=== PATIENT | female | born 1995 | race African-American/Black ===

== ENCOUNTER 2017-01-01 09:44 | Emergency (ER) | payer SELFPAY ==
[~2017-01-01] VITALS: Ht 175.3 cm; Wt 120.2 kg
[~2017-01-01 09:44] MED LIST: MUPI15CR TP
--- NOTE | 2017-01-01 10:13 | PHYS DOC ---
Past Medical History Past Medical History: No Pertinent History Past Surgical History: No Surgical History Alcohol Use: None Drug Use: None Adult General Chief Complaint Chief Complaint: SORE THROAT HPI HPI Patient is a 21 year old female otherwise healthy with a two-year history of intermittent lymphadenopathy specifically underneath the jaw and left side of the neck. She says it periodically once a month gets enlarged and very tender to palpation. This one episode his began 2 days ago as got progressively worse with x-ray swelling localized tenderness to the left anterior cervical chain. She says these swelling lymph nodes to never completely go away they just become increasingly larger over the last 6 months. Patient denies any fevers, night sweats, weight loss or sore breath. She denies any chest pain, recent URI symptoms, or actual sore throat. Said the pain does hurt to swallow. She denies any change in voice, denies any sick contacts denies any travel or recent antibiotic use. Reactive lymphadenopathy could be associated with irises or bacterial infections. Given the duration of symptoms and no localized redness with hard lymph nodes oral throat cancers also need to be considered. Review of Systems Review of Systems Constitutional: Denies fever or chills [] Eyes: Denies change in visual acuity, redness, or eye pain [] HENT: Denies nasal congestion does complain of a sore throat with swallowing. She denies any anterior neck pain but there is swelling with this reactive lymphadenopathy. There is been no hot potato voice Respiratory: Denies cough or shortness of breath [] Cardiovascular: No additional information not addressed in HPI [] GI: Denies abdominal pain, nausea, vomiting, bloody stools or diarrhea [] : Denies dysuria or hematuria [] Musculoskeletal: Denies back pain or joint pain [] Integument: Denies rash or skin lesions [] Neurologic: Denies headache, focal weakness or sensory changes [] Endocrine: Denies polyuria or polydipsia [] Current Medications Current Medications Current Medications Medications (Trade) Dose Ordered Sig/Seven Start Time Stop Time Status Last Admin Dose Admin Info (Do NOT chart on this entry -- for MONITORING) 1 each PRN DAILY PRN 01/01/17 10:30 01/03/17 10:29 Iohexol (Omnipaque 300 Mg/ml) 70 ml 1X ONCE 01/01/17 10:30 01/01/17 10:31 DC 01/01/17 11:17 70 ML Allergies Allergies Allergies Coded Allergies Type Severity Reaction Last Updated Verified No Known Drug Allergies 05/27/16 No Physical Exam Physical Exam Signs within normal limits. Constitutional: Well developed, well nourished, no acute distress, non-toxic appearance. He is relatively obese HENT: Normocephalic, atraumatic, bilateral external ears normal, oropharynx moist, no oral exudates, nose normal. There is no erythema is demonstrates tender lymphadenopathy specifically along the chains underneath the chin and anterior cervical chain. They're fixed very firm measuring 1-2 cm in size with. There is no evidence of Low angina or bacterial tracheitis. Eyes: PERRLA, EOMI, conjunctiva normal, no discharge. [] Neck: Normal range of motion, no tenderness, supple, no stridor. [] Cardiovascular:Heart rate regular rhythm, no murmur [] Lungs & Thorax: Bilateral breath sounds clear to auscultation [] Skin: Warm, dry, no erythema, no rash. [] Neurologic: Alert and oriented X 3, normal motor function, normal sensory function, no focal deficits noted. [] Psychologic: Affect normal, judgement normal, mood normal. [] Current Patient Data Vital Signs Vital Signs Date Time Temp Pulse Resp B/P (MAP) Pulse Ox O2 Delivery O2 Flow Rate FiO2 01/01/17 09:45 99.2 78 16 140/85 (103) 98 Room Air 99.2 Lab Values Laboratory Tests Test 01/01/17 09:33 01/01/17 10:30 POC Urine HCG, Qualitative Hcg negative (Negative) White Blood Count 11.1 x10^3/uL (4.0-11.0) H Red Blood Count 5.13 x10^6/uL (3.50-5.40) Hemoglobin 12.7 g/dL (12.0-15.5) Hematocrit 39.8 % (36.0-47.0) Mean Corpuscular Volume 78 fL (79-100) L Mean Corpuscular Hemoglobin 25 pg (25-35) Mean Corpuscular Hemoglobin Concent 32 g/dL (31-37) Red Cell Distribution Width 14.7 % (11.5-14.5) H Platelet Count 239 x10^3/uL (140-400) Neutrophils (%) (Auto) 78 % (31-73) H Lymphocytes (%) (Auto) 13 % (24-48) L Monocytes (%) (Auto) 7 % (0-9) Eosinophils (%) (Auto) 2 % (0-3) Basophils (%) (Auto) 1 % (0-3) Neutrophils # (Auto) 8.6 x10^3uL (1.8-7.7) H Lymphocytes # (Auto) 1.4 x10^3/uL (1.0-4.8) Monocytes # (Auto) 0.8 x10^3/uL (0.0-1.1) Eosinophils # (Auto) 0.2 x10^3/uL (0.0-0.7) Basophils # (Auto) 0.1 x10^3/uL (0.0-0.2) Sodium Level 140 mmol/L (136-145) Potassium Level 3.6 mmol/L (3.5-5.1) Chloride Level 104 mmol/L (98-107) Carbon Dioxide Level 28 mmol/L (21-32) Anion Gap 8 (6-14) Blood Urea Nitrogen 7 mg/dL (7-20) Creatinine 0.7 mg/dL (0.6-1.0) Estimated GFR (Cockcroft-Gault) 129.1 BUN/Creatinine Ratio 10 (6-20) Glucose Level 105 mg/dL (70-99) H Calcium Level 8.3 mg/dL (8.5-10.1) L Total Bilirubin 0.6 mg/dL (0.2-1.0) Aspartate Amino Transferase (AST) 20 U/L (15-37) Alanine Aminotransferase (ALT) 24 U/L (14-59) Alkaline Phosphatase 97 U/L (46-116) Total Protein 7.7 g/dL (6.4-8.2) Albumin 3.8 g/dL (3.4-5.0) Albumin/Globulin Ratio 1.0 (1.0-1.7) Laboratory Tests 01/01/17 10:30 Laboratory Tests 01/01/17 10:30 EKG EKG [] Radiology/Procedures Radiology/Procedures [] [facility] [address] [place] [address] IMAGING REPORT Signed PATIENT: CRYSTAL NOVOA ACCOUNT: [id number] : 1995 LOCATION: ER AGE: 21 SEX: F EXAM STATUS: REG ER ORD. PHYSICIAN: MONA MUIR MD REASON: long-term lymphadenopathy PROCEDURE: CT SOFT TISSUE NECK W/CONTRAST CT of the neck with contrast, 01/01/2017: History: Lymphadenopathy Multidetector CT imaging was performed following an IV bolus injection of iodinated contrast material. Multiplanar reconstructions were produced. There is a mildly enlarged submandibular lymph node centered just to the right of midline. It measures 11 mm in short axis dimension. There is an adjacent 10 mm submandibular lymph node just to the left of midline. There is a cluster of small lymph nodes along the posterior/inferior aspect of the left mandibular angle with the largest of these measuring 10-11 mm in short axis dimension. There are other smaller upper cervical lymph nodes bilaterally which appear to be at the upper limits of normal in size. These are somewhat elongated measuring approximately 9 mm in short axis dimension. The laryngeal region is unremarkable. No significant airway narrowing is seen. The thyroid, parotid and submandibular glands show no abnormality. The visualized paranasal and mastoid sinuses are clear. A radiopaque foreign body in the mouth is presumably related to a tongue piercing. IMPRESSION: Minimal upper cervical adenopathy as described above. PQRS Compliance Statement: One or more of the following individualized dose reduction techniques were utilized for this examination: 1. Automated exposure control 2. Adjustment of the mA and/or kV according to patient size 3. Use of iterative reconstruction technique Course & Med Decision Making Course & Med Decision Making Pertinent Labs and Imaging studies reviewed. (See chart for details) with a long -standing is history of intermittent lymphadenopathy of the lower jaw along the anterior cervical chains. no evidence of cancer in the oral airway. no evidence of ingest, periapical abscess, doubt cure tracheitis or Low angina. Is now having symptoms for last 2 years into follow up with ENT for possible source continued inflammation causing reactive lymphadenopathy. Discharge home with ENT follow-up. Provided NSAIDs for similar treatment. Impression reactive lymphadenopathy unclear etiology likely seasonal allergies in nature. [] Dragon Disclaimer Dragon Disclaimer This electronic medical record was generated, in whole or in part, using a voice recognition dictation system. Departure Departure Impression: Primary Impression: Lymphadenopathy of head and neck Disposition: HOME, SELF-CARE Condition: IMPROVED Referrals: NO PCP (PCP) Patient Instructions: Sore Throat Additional Instructions: please return for any new or increased symptoms, questions or concerns Scripts Naproxen (NAPROSYN) 500 Mg Tablet 1 TAB PO BID, #14 TAB 1 Refill Prov: MONA MUIR MD 01/01/17 MONA MUIR MD Jan 01, 2017 10:13
[2017-01-01] MEDS ORDERED: CONTRAST GIVEN MC PRN (10:30)
[2017-01-01] MEDS ORDERED: IOHEXOL 300 MG/ML 75 ML VIAL IV ONE (10:30)
[2017-01-01 10:47] LABS: BASO # 0.1 x10^3/uL (0.0-0.2); BASO % 1 % (0-3); EOS % 2 % (0-3); HEMATOCRIT 39.8 % (36.0-47.0); HEMOGLOBIN 12.7 g/dL (12.0-15.5); LYMPH # 1.4 x10^3/uL (1.0-4.8); LYMPH % 13 % (24-48); MEAN CORPUSCULAR HEMOGLOBIN 25 pg (25-35); MEAN CORPUSCULAR HGB CONC 32 g/dL (31-37); MEAN CORPUSCULAR VOLUME 78 fL (79-100); MONO % 7 % (0-9); NEUT % 78 % (31-73); PLATELET COUNT 239 x10^3/uL (140-400); RED BLOOD COUNT 5.13 x10^6/uL (3.50-5.40); RED CELL DISTRIBUTION WIDTH 14.7 % (11.5-14.5); WHITE BLOOD COUNT 11.1 x10^3/uL (4.0-11.0)
[2017-01-01 11:00] LABS: CALCIUM 8.3 mg/dL (8.5-10.1); CREATININE 0.7 mg/dL (0.6-1.0); GFR 129.1; POTASSIUM 3.6 mmol/L (3.5-5.1)
[2017-01-01 11:05] LABS: ALBUMIN 3.8 g/dL (3.4-5.0); TOTAL BILIRUBIN 0.6 mg/dL (0.2-1.0); TOTAL PROTEIN 7.7 g/dL (6.4-8.2)
--- NOTE | 2017-01-01 11:46 | RAD ---
CT of the neck with contrast, 01/01/2017: History: Lymphadenopathy Multidetector CT imaging was performed following an IV bolus injection of iodinated contrast material. Multiplanar reconstructions were produced. There is a mildly enlarged submandibular lymph node centered just to the right of midline. It measures 11 mm in short axis dimension. There is an adjacent 10 mm submandibular lymph node just to the left of midline. There is a cluster of small lymph nodes along the posterior/inferior aspect of the left mandibular angle with the largest of these measuring 10-11 mm in short axis dimension. There are other smaller upper cervical lymph nodes bilaterally which appear to be at the upper limits of normal in size. These are somewhat elongated measuring approximately 9 mm in short axis dimension. The laryngeal region is unremarkable. No significant airway narrowing is seen. The thyroid, parotid and submandibular glands show no abnormality. The visualized paranasal and mastoid sinuses are clear. A radiopaque foreign body in the mouth is presumably related to a tongue piercing. IMPRESSION: Minimal upper cervical adenopathy as described above. PQRS Compliance Statement: One or more of the following individualized dose reduction techniques were utilized for this examination: 1. Automated exposure control 2. Adjustment of the mA and/or kV according to patient size 3. Use of iterative reconstruction technique
[2017-01-01 12:00] VITALS: BP 125/79
[2017-01-01] MEDS ORDERED: NAPR500T PO (12:01)
== END 2017-01-01 12:10 | disposition home or self-care (01) ==
LOC: ER 09:44
DX: R59.0 Localized enlarged lymph nodes (principal); E66.9 Obesity, unspecified
CPT/HCPCS: 36415; 70491; 80053; 81025; 85027; 99285; Q9967

== ENCOUNTER 2018-03-05 11:48 | Emergency (ER) | payer OTHER ==
[~2018-03-05] VITALS: Ht 175.3 cm; Wt 120.2 kg
[~2018-03-05 11:48] MED LIST changes: +NAPR-683 PO
[2018-03-05 11:56] VITALS: BP 131/68
[2018-03-05] MEDS ORDERED: CEPH-264 PO (12:14)
[2018-03-05] MEDS ORDERED: CEPHALEXIN 250 MG CAPSULE. PO ONE (12:15)
--- NOTE | 2018-03-05 12:28 | PHYS DOC ---
Past Medical History Past Medical History: No Pertinent History Past Surgical History: No Surgical History Alcohol Use: None Drug Use: None Adult General Chief Complaint Chief Complaint: BREAST PROBLEM HPI HPI Patient is a 22 year old female who presents with pain in the left breast. Patient is 2 weeks . She is successfully breast-feeding. She denies difficulties with latch. She does not have decreased milk production. She does however complain of redness and pain over the left breast that started overnight last evening. She has had no fever but has had some chills. She has had some nausea as well but she has been having this since delivery and it is not a new symptom. She has medications at home for nausea. Patient denies prior history of similar symptoms. Otherwise, no difficulties in the period. No abdominal pain. She describes what sounds to be normal lochia. Review of Systems Review of Systems Constitutional: Denies fever or chills Respiratory: Denies cough or shortness of breath Cardiovascular: No additional information GI: Denies abdominal pain : Denies dysuria Musculoskeletal: Denies back pain Integument: Denies rash or skin lesions Neurologic: Denies headache All other systems were reviewed and found to be within normal limits, except as documented in this note. Current Medications Current Medications Current Medications Medications (Trade) Dose Ordered Sig/Seven Start Time Stop Time Status Last Admin Dose Admin Cephalexin HCl (Keflex) 500 mg 1X ONCE 03/05/18 12:15 03/05/18 12:16 DC Allergies Allergies Allergies Coded Allergies Type Severity Reaction Last Updated Verified No Known Drug Allergies 05/27/16 No Physical Exam Physical Exam Constitutional: Well developed, well nourished, no acute distress HENT: Normocephalic, atraumatic, bilateral external ears normal Eyes: PERRLA, EOMI, conjunctiva normal Neck: Normal range of motion Cardiovascular:Heart rate regular rhythm Lungs & Thorax: Bilateral lungs clear Abdomen: Bowel sounds normal, soft, no tenderness Skin: Warm Extremities: No edema Neurologic: Alert and oriented X 3 Psychologic: Affect normal Exam of the left breast reveals local warmth to touch, and tenderness to manipulation. milk is oozing from the nipple but does not appear purulent. no palpable fluctuance is present. Current Patient Data Vital Signs Vital Signs Date Time Temp Pulse Resp B/P (MAP) Pulse Ox O2 Delivery O2 Flow Rate FiO2 03/05/18 11:56 99.9 102 18 131/68 (89) 97 Room Air 99.9 EKG EKG [] Radiology/Procedures Radiology/Procedures [] Course & Med Decision Making Course & Med Decision Making Pertinent Labs and Imaging studies reviewed. (See chart for details) Patient is evaluated in the emergency department for mastitis in the period. She has no constitutional symptoms and no signs of systemic infectious process. Patient is given a dose of Keflex in the emergency room. She is discharged home on the same. She is advised to come back to the ER for any new or worsening symptoms. Otherwise, follow up with her OB at her already scheduled appointment. Patient is agreeable to the plan of care and all of her questions are answered prior to discharge home. Dragon Disclaimer Dragon Disclaimer This electronic medical record was generated, in whole or in part, using a voice recognition dictation system. Departure Departure Impression: Primary Impression: Mastitis Disposition: 01 HOME, SELF-CARE Condition: GOOD Patient Instructions: Mastitis, [id number] Scripts Cephalexin (KEFLEX) 500 Mg Capsule 500 MG PO QID for 10 Days, #40 CAP Prov: XIN OLVERA DO 03/05/18 XIN OLVERA DO Mar 05, 2018 12:28
== END 2018-03-05 12:25 | disposition home or self-care (01) ==
LOC: ER 11:48
DX: O91.22 Nonpurulent mastitis associated with the puerperium (principal); R11.0 Nausea
CPT/HCPCS: 99283

== ENCOUNTER 2018-07-13 08:31 | Emergency (ER) | payer OTHER ==
[~2018-07-13] VITALS: Ht 175.3 cm; Wt 127.0 kg
[~2018-07-13 08:31] MED LIST changes: +CEPH-264 PO
[2018-07-13 09:30] LABS: BILIRUBIN,URINE NEGATIVE (NEG); CLARITY,URINE CLOUDY; COLOR,URINE YELLOW; NITRITE,URINE NEGATIVE (NEG); PROTEIN,URINE NEGATIVE (NEG-TRACE); UROBILINOGEN,URINE 0.2 mg/dL (0.2 mg/dL)
--- NOTE | 2018-07-13 09:38 | PHYS DOC ---
Past Medical History Past Medical History: Other Additional Past Medical Histor: BV Past Surgical History: No Surgical History Alcohol Use: None Drug Use: None Adult General Chief Complaint Chief Complaint: VAGINAL PROBLEM HPI HPI Patient is a 22 year old female who presents with vaginal discharge for 2 days. Patient denies any concerns for STDs. Denies any chance she is . Patient states she has history of BV and her current discharge feels and smells like BV infection. Review of Systems Review of Systems Constitutional: Denies fever or chills [] Eyes: Denies change in visual acuity, redness, or eye pain [] HENT: Denies nasal congestion or sore throat [] Respiratory: Denies cough or shortness of breath [] Cardiovascular: No additional information not addressed in HPI [] GI: Reports vaginal discharge for 2 days. Denies abdominal pain, nausea, vomiting, bloody stools or diarrhea [] : Denies dysuria or hematuria [] Musculoskeletal: Denies back pain or joint pain [] Integument: Denies rash or skin lesions [] Neurologic: Denies headache, focal weakness or sensory changes [] [] All other systems were reviewed and found to be within normal limits, except as documented in this note. Allergies Allergies Allergies Coded Allergies Type Severity Reaction Last Updated Verified No Known Drug Allergies 05/27/16 No Physical Exam Physical Exam Constitutional: Well developed, well nourished, no acute distress, non-toxic appearance. [] HENT: Normocephalic, atraumatic, bilateral external ears normal, oropharynx moist, no oral exudates, nose normal. [] Eyes: PERRLA, EOMI, conjunctiva normal, no discharge. [] Neck: Normal range of motion, no tenderness, supple, no stridor. [] Cardiovascular:Heart rate regular rhythm, no murmur [] Lungs & Thorax: Bilateral breath sounds clear to auscultation [] Abdomen: Bowel sounds normal, soft, no tenderness, no masses, no pulsatile masses. [] Pelvic exam External pelvic appears normal, cervix is visualized closed no CMT, no adnexal tenderness, trace amount of white discharge in the vaginal vault fishy in smell. Skin: Warm, dry, no erythema, no rash. [] Back: No tenderness, no CVA tenderness. [] Extremities: No tenderness, no cyanosis, no clubbing, ROM intact, no edema. [] Neurologic: Alert and oriented X 3, normal motor function, normal sensory function, no focal deficits noted. [] Psychologic: Affect normal, judgement normal, mood normal. [] Current Patient Data Vital Signs Vital Signs Date Time Temp Pulse Resp B/P (MAP) Pulse Ox O2 Delivery O2 Flow Rate FiO2 07/13/18 09:10 98.9 92 16 167/86 (113) 100 Room Air 98.9 Lab Values Laboratory Tests Test 07/13/18 09:15 07/13/18 09:20 POC Urine HCG, Qualitative Hcg negative (Negative) Urine Collection Type Unknown Urine Color Yellow Urine Clarity Cloudy Urine pH 6.0 Urine Specific [place] 1.025 Urine Protein Negative mg/dL (NEG-TRACE) Urine Glucose (UA) Negative mg/dL (NEG) Urine Ketones (Stick) Negative mg/dL (NEG) Urine Blood Trace (NEG) Urine Nitrite Negative (NEG) Urine Bilirubin Negative (NEG) Urine Urobilinogen Dipstick 0.2 mg/dL (0.2 mg/dL) Urine Leukocyte Esterase Large (NEG) Urine RBC 0 /HPF (0-2) Urine WBC 20-40 /HPF (0-4) Urine Squamous Epithelial Cells Mod /LPF Urine Bacteria Moderate /HPF (0-FEW) Urine Mucus Slight /LPF Microbiology 07/13/18 Wet Prep - Final, Complete EKG EKG [] Radiology/Procedures Radiology/Procedures [] Course & Med Decision Making Course & Med Decision Making Pertinent Labs and Imaging studies reviewed. (See chart for details) This is a 22-year-old female patient presented to the ED today complaining of vaginal discharge that began yesterday. Patient is concerned for bacterial vaginosis, has history of the same. Negative urine hCG, urine positive for UTI. Wet prep noted for altered yuni consistent with bacterial vaginosis. Discharged with Flagyl and cephalexin. Follow-up with PCP in 1-2 weeks. Dragon Disclaimer Dragon Disclaimer This electronic medical record was generated, in whole or in part, using a voice recognition dictation system. Departure Departure Impression: Primary Impression: UTI (urinary tract infection) Additional Impression: Bacterial vaginosis Disposition: HOME, SELF-CARE Condition: STABLE Referrals: UNKNOWN PCP NAME (PCP) Follow up with your doctor in 1-2 weeks Patient Instructions: Bacterial Vaginosis, [id number]-[id number], Urinary Tract Infection Additional Instructions: You were treated in the emergency room for urinary tract infection and bacterial vaginosis. Complete your antibiotics. Follow-up with your own primary care doctor in 1-2 weeks. To the ED at any point symptoms worsen. Scripts Cephalexin (CEPHALEXIN) 500 Mg Tablet 1 TAB PO BID, #14 TAB Prov: MARTIN TINOCO APRN 07/13/18 Metronidazole (FLAGYL) 500 Mg Tablet 1 TAB PO BID, #14 TAB Prov: MARTIN TINOCO APRN 07/13/18 Problem Qualifiers Primary Impression: UTI (urinary tract infection) Urinary tract infection type: site unspecified Hematuria presence: without hematuria Qualified Codes: N39.0 - Urinary tract infection, site not specified MARTIN TINOCO APRN Jul 13, 2018 09:38
[2018-07-13 09:48] LABS: SQUAMOUS EPITHELIAL CELL,UR MOD /LPF
[2018-07-13 09:49] LABS: BACTERIA,URINE MODERATE /HPF (0-FEW); RBC,URINE 0 /HPF (0-2); WBC,URINE 20-40 /HPF (0-4)
[2018-07-13] MEDS ORDERED: CEPH500T PO (10:11)
[2018-07-13] MEDS ORDERED: METR500T PO (10:11)
[2018-07-13 10:26] VITALS: BP 156/86
== END 2018-07-13 10:26 | disposition home or self-care (01) ==
LOC: ER 08:31
DX: N39.0 Urinary tract infection, site not specified (principal); N76.0 Acute vaginitis; B96.89 Other specified bacterial agents as the cause of diseases classified elsewhere
CPT/HCPCS: 81001; 81025; 87086; 99283; Q0111

== ENCOUNTER 2018-10-29 12:31 | Emergency (ER) | payer OTHER ==
[~2018-10-29] VITALS: Ht 175.3 cm; Wt 127.0 kg
[~2018-10-29 12:31] MED LIST changes: +CEPH500T PO; +METR500T PO
[2018-10-29 13:05] VITALS: BP 156/93
[2018-10-29 14:04] LABS: BILIRUBIN,URINE NEGATIVE (NEG); CLARITY,URINE CLEAR; COLOR,URINE YELLOW; NITRITE,URINE NEGATIVE (NEG); PROTEIN,URINE NEGATIVE (NEG-TRACE)
--- NOTE | 2018-10-29 14:06 | PHYS DOC ---
Past Medical History Past Medical History: Other Additional Past Medical Histor: BV (RAYMUNDO CHAUDHARY APRN) Past Surgical History: No Surgical History (RAYMUNDO CHAUDHARY APRN) Alcohol Use: None Drug Use: None (RAYMUNDO CHAUDHARY APRN) Adult General Chief Complaint Chief Complaint: VAGINAL PROBLEM HPI HPI Patient is a 23 year old female presents for evaluation of increased vaginal discharge. She reports hx of chronic BV. Denies concerns for STDs or pelvic pain. She declines having a pelvic exam today, prefers to self swab which I feel is appropriate since she has no pain. (RAYMUNDO CHAUDHARY APRN) Review of Systems Review of Systems Constitutional: Denies fever or chills [] Eyes: Denies change in visual acuity, redness, or eye pain [] HENT: Denies nasal congestion or sore throat [] Respiratory: Denies cough or shortness of breath [] Cardiovascular: No additional information not addressed in HPI [] GI: Denies abdominal pain, nausea, vomiting, bloody stools or diarrhea [] : Denies dysuria or hematuria C/O VAGINAL DISCHARGE[] Musculoskeletal: Denies back pain or joint pain [] Integument: Denies rash or skin lesions [] Neurologic: Denies headache, focal weakness or sensory changes [] Endocrine: Denies polyuria or polydipsia [] All other systems were reviewed and found to be within normal limits, except as documented in this note. (RAYMUNDO CHAUDHARY APRN) Allergies Allergies Allergies Coded Allergies Type Severity Reaction Last Updated Verified No Known Drug Allergies 05/27/16 No (KARYNA LUU MD) Physical Exam Physical Exam Constitutional: Well developed, well nourished, no acute distress, non-toxic appearance. [] Cardiovascular:Heart rate regular rhythm, no murmur [] Lungs & Thorax: Bilateral breath sounds clear to auscultation [] Abdomen: Bowel sounds normal, soft, no tenderness, no masses, no pulsatile mas ses. [] exam deferred at patient request, self swabs obtained Skin: Warm, dry, no erythema, no rash. [] Neurologic: Alert and oriented X 3, normal motor function, normal sensory function, no focal deficits noted. [] Psychologic: Affect normal, judgement normal, mood normal. [] (RAYMUNDO CHAUDHARY APRN) Current Patient Data Vital Signs Vital Signs Date Time Temp Pulse Resp B/P (MAP) Pulse Ox O2 Delivery O2 Flow Rate FiO2 10/29/18 13:05 98.4 81 18 156/93 (114) 98 Room Air 98.4 (KARYNA LUU MD) Lab Values Laboratory Tests Test 10/29/18 13:30 10/29/18 13:45 10/29/18 13:56 Chlamydia DNA Probe Negative (Negative) Neisseria gonorrhoeae DNA Probe Negative (Negative) Urine Collection Type Unknown Urine Color Yellow Urine Clarity Clear Urine pH 7.0 Urine Specific [place] 1.025 Urine Protein Negative mg/dL (NEG-TRACE) Urine Glucose (UA) Negative mg/dL (NEG) Urine Ketones (Stick) Negative mg/dL (NEG) Urine Blood Negative (NEG) Urine Nitrite Negative (NEG) Urine Bilirubin Negative (NEG) Urine Urobilinogen Dipstick 1.0 mg/dL (0.2 mg/dL) Urine Leukocyte Esterase Small (NEG) Urine RBC 1-2 /HPF (0-2) Urine WBC 1-4 /HPF (0-4) Urine Squamous Epithelial Cells Few /LPF Urine Bacteria Few /HPF (0-FEW) Urine Mucus Mod /LPF POC Urine HCG, Qualitative Hcg negative (Negative) Microbiology 10/29/18 Wet Prep - Final, Complete 10/29/18 Urine Culture - Final, Complete 10/29/18 Urine Culture Result 1 (NETTE) - Final, Complete (KARYNA LUU MD) EKG EKG [] (RAYMUNDO CHAUDHARY APRN) Radiology/Procedures Radiology/Procedures [] (RAYMUNDO CHAUDHARY APRN) Course & Med Decision Making Course & Med Decision Making Pertinent Labs and Imaging studies reviewed. (See chart for details) [She is not interested in treatment for gonorrhea or chlamydia today in the emergency room, prefers to wait for culture results. Will give her prescription for metronidazole for bacterial vaginosis. Recommend follow-up with primary care doctor in 2-3 days.] (RAYMUNDO CHAUDHARY APRN) Course & Med Decision Making Staff Physician Addendum: I was working in the ER during the course of this patient's visit. I was available for consultation as needed, but I was not directly involved in the care of this patient. (KARYNA LUU MD) Dragon Disclaimer Dragon Disclaimer This electronic medical record was generated, in whole or in part, using a voice recognition dictation system. (RAYMUNDO CHAUDHARY APRN) Departure Departure Impression: Primary Impression: Bacterial vaginosis Disposition: HOME, SELF-CARE Condition: STABLE Referrals: UNKNOWN PCP NAME (PCP) Patient Instructions: Bacterial Vaginosis, [id number] Scripts Metronidazole (METRONIDAZOLE) 500 Mg Tablet 1 TAB PO BID, #14 TAB Prov: RAYMUNDO CHAUDHARY APRN 10/29/18 RAYMUNDO CHAUDHARY APRN Oct 29, 2018 14:06 KARYNA LUU MD Oct 30, 2018 23:34
[2018-10-29 14:12] LABS: BACTERIA,URINE FEW /HPF (0-FEW); SQUAMOUS EPITHELIAL CELL,UR FEW /LPF
[2018-10-29] MEDS ORDERED: METR-34 PO (14:35)
[2018-10-30 13:49] LABS: GC PROBE Negative (Negative)
== END 2018-10-29 14:41 | disposition home or self-care (01) ==
LOC: ER 12:31
DX: N76.0 Acute vaginitis (principal); B96.89 Other specified bacterial agents as the cause of diseases classified elsewhere
CPT/HCPCS: 81001; 81025; 87086; 87491; 87591; 99284; Q0111

== ENCOUNTER 2019-01-06 09:47 | Emergency (ER) | payer OTHER ==
[~2019-01-06] VITALS: Ht 175.3 cm; Wt 127.0 kg
[~2019-01-06 09:47] MED LIST changes: +METR-34 PO
--- NOTE | 2019-01-06 10:04 | PHYS DOC ---
Past Medical History Past Medical History: Other Additional Past Medical Histor: BV Past Surgical History: No Surgical History Alcohol Use: None Drug Use: None Adult General Chief Complaint Chief Complaint: ABDOMINAL PAIN HPI HPI Patient is a 23 year old female who presents with low mid abdominal pressure si nce Monday. Patient denies nausea, vomiting, diarrhea. Patient rates her pressure discomfort a 5 out of 10. Patient to not take any pain medications. She states her last menstrual period was November 20, 2018 and states that she is irregular. Review of Systems Review of Systems Constitutional: Denies fever or chills [] Eyes: Denies change in visual acuity, redness, or eye pain [] HENT: Denies nasal congestion or sore throat [] Respiratory: Denies cough or shortness of breath [] Cardiovascular: No additional information not addressed in HPI [] GI: Low mid abdominal pain, denies nausea, vomiting, bloody stools or diarrhea [] : Denies dysuria or hematuria [] Musculoskeletal: Denies back pain or joint pain [] Integument: Denies rash or skin lesions [] Neurologic: Denies headache, focal weakness or sensory changes [] Endocrine: Denies polyuria or polydipsia [] All other systems were reviewed and found to be within normal limits, except as documented in this note. Allergies Allergies Allergies Coded Allergies Type Severity Reaction Last Updated Verified No Known Drug Allergies 05/27/16 No Physical Exam Physical Exam Constitutional: Well developed, well nourished, no acute distress, non-toxic appearance. [] HENT: Normocephalic, atraumatic, bilateral external ears normal, oropharynx moist, no oral exudates, nose normal. [] Eyes: PERRLA, EOMI, conjunctiva normal, no discharge. [] Neck: Normal range of motion, no tenderness, supple, no stridor. [] Cardiovascular:Heart rate regular rhythm, no murmur [] Lungs & Thorax: Bilateral breath sounds clear to auscultation [] Abdomen: Bowel sounds normal, soft, Low mid pressure with palpation, no masses, no pulsatile masses. [] Skin: Warm, dry, no erythema, no rash. [] Back: No tenderness, no CVA tenderness. [] Extremities: No tenderness, no cyanosis, no clubbing, ROM intact, no edema. [] Neurologic: Alert and oriented X 3, normal motor function, normal sensory function, no focal deficits noted. [] Psychologic: Affect normal, judgement normal, mood normal. [] Current Patient Data Vital Signs Vital Signs Date Time Temp Pulse Resp B/P (MAP) Pulse Ox O2 Delivery O2 Flow Rate FiO2 01/06/19 09:55 98.0 91 18 132/63 (86) 99 Room Air 98.0 Lab Values Laboratory Tests Test 01/06/19 09:55 01/06/19 09:58 Urine Collection Type Void Urine Color Yellow Urine Clarity Clear Urine pH 6.0 Urine Specific [place] 1.020 Urine Protein Negative mg/dL (NEG-TRACE) Urine Glucose (UA) Negative mg/dL (NEG) Urine Ketones (Stick) Negative mg/dL (NEG) Urine Blood Negative (NEG) Urine Nitrite Negative (NEG) Urine Bilirubin Negative (NEG) Urine Urobilinogen Dipstick 1.0 mg/dL (0.2 mg/dL) Urine Leukocyte Esterase Moderate (NEG) Urine RBC 1-2 /HPF (0-2) Urine WBC 5-10 /HPF (0-4) Urine Squamous Epithelial Cells Many /LPF Urine Bacteria Many /HPF (0-FEW) Urine Mucus Mod /LPF POC Urine HCG, Qualitative Hcg positive (Negative) EKG EKG [] Radiology/Procedures Radiology/Procedures [] Course & Med Decision Making Course & Med Decision Making Patient is a 23 year old female who presents with low mid abdominal pressure s sweta Monday. Patient denies nausea, vomiting, diarrhea, vaginal bleeding, or vaginal discharge. Patient rates her pressure discomfort a 5 out of 10. Patient to not take any pain medications. She states her last menstrual period was November 20, 2018 and states that she is irregular. Last bowel movement was this morning states it was normal for her. Patient denies any concerns for sexual transmitted diseases and denies any vaginal discharge, lesions or foul odors. Abdomen is soft and nontender but patient states that she does have increased pressure with palpation to low mid abdomen. Lungs are clear to auscultation in all lobes. Denies dysuria symptoms. Heart rate regular without murmur. Afebrile. Skin pink, warm and dry. Mucous membranes moist. Ambulatory with a steady gait. HCG positive. Urinalysis shows UTI. Patient will be treated with Keflex. Patient to follow up with her [employer] WORKER as soon as possible for . Dragon Disclaimer Dragon Disclaimer This electronic medical record was generated, in whole or in part, using a voice recognition dictation system. Departure Departure Impression: Primary Impression: UTI (urinary tract infection) Disposition: 01 HOME, SELF-CARE Condition: STABLE Referrals: UNKNOWN PCP NAME (PCP) Patient Instructions: Urinary Tract Infection Additional Instructions: Follow up with OB as soon as possible to establish care. Use Tylenol for pain. Take medication as prescribed. Scripts Cephalexin (KEFLEX) 500 Mg Capsule 1 CAP PO BID, #14 CAP Prov: ARIEL DELAROSA APRN 01/06/19 Problem Qualifiers Primary Impression: UTI (urinary tract infection) Urinary tract infection type: site unspecified Hematuria presence: without hematuria Qualified Codes: N39.0 - Urinary tract infection, site not specified ARIEL DELAROSA APRN Jan 06, 2019 10:04
[2019-01-06 10:44] LABS: BILIRUBIN,URINE NEGATIVE (NEG); CLARITY,URINE CLEAR; COLOR,URINE YELLOW; NITRITE,URINE NEGATIVE (NEG); PROTEIN,URINE NEGATIVE (NEG-TRACE)
[2019-01-06 10:52] LABS: SQUAMOUS EPITHELIAL CELL,UR MANY /LPF
[2019-01-06 10:53] LABS: BACTERIA,URINE MANY /HPF (0-FEW)
[2019-01-06] MEDS ORDERED: CEPH-264 PO (10:59)
[2019-01-06 11:00] VITALS: BP 133/63
[2019-01-06 11:50] LABS: BASO # 0.1 x10^3/uL (0.0-0.2); BASO % 1 % (0-3); EOS # 0.1 x10^3/uL (0.0-0.7); EOS % 1 % (0-3); HEMATOCRIT 37.5 % (36.0-47.0); HEMOGLOBIN 12.2 g/dL (12.0-15.5); LYMPH # 1.8 x10^3/uL (1.0-4.8); LYMPH % 22 % (24-48); MEAN CORPUSCULAR HEMOGLOBIN 26 pg (25-35); MEAN CORPUSCULAR HGB CONC 33 g/dL (31-37); MEAN CORPUSCULAR VOLUME 79 fL (79-100); MONO # 0.5 x10^3/uL (0.0-1.1); MONO % 6 % (0-9); NEUT # 5.7 x10^3uL (1.8-7.7); NEUT % 70 % (31-73); PLATELET COUNT 231 x10^3/uL (140-400); RED BLOOD COUNT 4.78 x10^6/uL (3.50-5.40); RED CELL DISTRIBUTION WIDTH 15.6 % (11.5-14.5); WHITE BLOOD COUNT 8.2 x10^3/uL (4.0-11.0)
[2019-01-06 12:01] LABS: CALCIUM 9.1 mg/dL (8.5-10.1); CREATININE 0.6 mg/dL (0.6-1.0); GFR 151.3; POTASSIUM 3.8 mmol/L (3.5-5.1)
== END 2019-01-06 12:29 | disposition home or self-care (01) ==
LOC: ER 09:47
DX: N39.0 Urinary tract infection, site not specified (principal)
CPT/HCPCS: 36415; 80048; 81001; 81025; 85025; 86850; 86900; 86901; 87086; 99284

== ENCOUNTER 2019-01-31 10:46 | Emergency (ER) | payer OTHER ==
[~2019-01-31] VITALS: Ht 175.3 cm; Wt 132.4 kg
[2019-01-31 11:29] VITALS: BP 158/77
--- NOTE | 2019-01-31 11:48 | PHYS DOC ---
Past Medical History Past Medical History: Other Additional Past Medical Histor: BV Past Surgical History: No Surgical History Alcohol Use: None Drug Use: None Adult General Chief Complaint Chief Complaint: VAGINAL PROBLEM HPI HPI Patient is a 23 year old AA female who presents to the emergency department wi complaints of irregular vaginal discharge and vaginal itching for the last several days. Patient denies any concerns of this sexually transmitted infection, she reports being in a relationship with her partner for the past 5 years and denies any concerns of infidelity. She also reports dysuria. Her vaginal discharge is white to green and thick, she denies any irregular vaginal odor. Pt denies any pain at this time. She states these sx are similar to when she has had BV in the past. She is currently , , LMP 11/24/18, EDC 08/31/19. ROS Patient denies any fever, cough, ear pain, sore throat, nasal congestion, abdominal pain, nausea, vomiting, diarrhea, back pain, vaginal bleeding, increased urinary frequency, or hematuria. All other ROS is neg unless otherwise noted in HPI. Review of Systems Review of Systems See Above Allergies Allergies Allergies Coded Allergies Type Severity Reaction Last Updated Verified No Known Drug Allergies 05/27/16 No Physical Exam Physical Exam See Above Constitutional: Well developed, well nourished, no acute distress, non-toxic appearance, obese. [] HENT: Normocephalic, atraumatic, bilateral external ears normal, nose normal. [] Eyes: PERRLA, EOMI, conjunctiva normal, no discharge. [] Neck: Normal range of motion,no stridor. [] Cardiovascular:Heart rate regular rhythm Lungs & Thorax: Respirations even and unlabored, no retractions, no respiratory distress Pelvic Exam: Contract Loader present Coral RN Abdomen: Nontender, soft, obese External Genitalia: Normal Skin, shaved pubis Speculum: Normal vaginal mucosa, thick white cervical discharge, cervix non-friable Bimanual: No adnexal masses or tenderness, No CMT Skin: Warm, dry, no erythema, no rash. [] Extremities: No cyanosis, no clubbing, ROM intact, no edema. [] Neurologic: Alert and oriented X 3, no focal deficits noted. [] Psychologic: Affect normal, judgement normal, mood normal. [] Current Patient Data Vital Signs Vital Signs Date Time Temp Pulse Resp B/P (MAP) Pulse Ox O2 Delivery O2 Flow Rate FiO2 01/31/19 11:29 98.6 91 16 158/77 (104) 100 Room Air 98.6 Lab Values Laboratory Tests Test 01/31/19 11:30 Urine Collection Type Void Urine Color Yellow Urine Clarity Clear Urine pH 7.5 Urine Specific [place] 1.015 Urine Protein Negative mg/dL (NEG-TRACE) Urine Glucose (UA) Negative mg/dL (NEG) Urine Ketones (Stick) Negative mg/dL (NEG) Urine Blood Negative (NEG) Urine Nitrite Negative (NEG) Urine Bilirubin Negative (NEG) Urine Urobilinogen Dipstick 0.2 mg/dL (0.2 mg/dL) Urine Leukocyte Esterase Trace (NEG) Urine RBC 0 /HPF (0-2) Urine WBC 5-10 /HPF (0-4) Urine Squamous Epithelial Cells Mod /LPF Urine Bacteria Few /HPF (0-FEW) Urine Mucus Mod /LPF POC Urine HCG, Qualitative Hcg positive (Negative) Microbiology 01/31/19 Wet Prep - Final, Complete EKG EKG [] Radiology/Procedures Radiology/Procedures [] Course & Med Decision Making Course & Med Decision Making Pertinent Labs and Imaging studies reviewed. (See chart for details) dx: UTI, vaginal yeast infection Pt declined treatment for STIs, prescription written for keflex. Use over the counter monistat 7 day treatment. Follow up with OBgyn as planned. Return to ER or see your doctor if gonorrhea or chlamydia testing is positive. Patient verbalized an understanding of home care, medications, follow-up, and return to ED instructions and was in agreement with the plan of care. [] Dragon Disclaimer Dragon Disclaimer This electronic medical record was generated, in whole or in part, using a voice recognition dictation system. Departure Departure Impression: Primary Impression: UTI (urinary tract infection) Additional Impression: Vaginal yeast infection Disposition: 01 HOME, SELF-CARE Condition: STABLE Referrals: UNKNOWN PCP NAME (PCP) Patient Instructions: Bacterial Vaginosis, [id number], - Urinary Tract Infection Additional Instructions: Fill the prescription and use as directed. Use the [id number] 7-day Monistat treatment for yeast infection. Follow up with your ObGyn as planned, return to the ER if symptoms worsen. You declined treatment for gonorrhea or chlamydia today, if one or both of these tests is positive you need to return to the ER or see your doctor for treatment. Scripts Cephalexin (KEFLEX) 500 Mg Capsule 1 CAP PO BID, #14 CAP 0 Refills Prov: VANESSA MICHEL APRN 01/31/19 Problem Qualifiers Primary Impression: UTI (urinary tract infection) Urinary tract infection type: site unspecified Hematuria presence: without hematuria Qualified Codes: N39.0 - Urinary tract infection, site not specified VANESSA MICHEL APRN Jan 31, 2019 11:48
[2019-01-31 11:55] LABS: BILIRUBIN,URINE NEGATIVE (NEG); CLARITY,URINE CLEAR; COLOR,URINE YELLOW; NITRITE,URINE NEGATIVE (NEG); PH,URINE 7.5; PROTEIN,URINE NEGATIVE (NEG-TRACE); UROBILINOGEN,URINE 0.2 mg/dL (0.2 mg/dL)
[2019-01-31 12:01] LABS: BACTERIA,URINE FEW /HPF (0-FEW); SQUAMOUS EPITHELIAL CELL,UR MOD /LPF
[2019-01-31 12:02] LABS: RBC,URINE 0 /HPF (0-2)
[2019-01-31] MEDS ORDERED: CEPH-264 PO (12:46)
[2019-02-01 16:11] LABS: GC PROBE Negative (Negative)
== END 2019-01-31 13:18 | disposition home or self-care (01) ==
LOC: ER 10:46
DX: N39.0 Urinary tract infection, site not specified (principal); B37.3 Candidiasis of vulva and vagina; E66.9 Obesity, unspecified; Z68.41 Body mass index [BMI] 40.0-44.9, adult
CPT/HCPCS: 81001; 81025; 87086; 87491; 87591; 99285; Q0111

== ENCOUNTER 2019-03-04 09:22 | Emergency (ER) | payer OTHER ==
[~2019-03-04] VITALS: Ht 175.3 cm; Wt 131.1 kg
[2019-03-04] MEDS ORDERED: ACETAMINOPHEN 500 MG TABLET PO ONE (10:00)
[2019-03-04 10:02] LABS: BILIRUBIN,URINE NEGATIVE (NEG); CLARITY,URINE CLOUDY; COLOR,URINE YELLOW; NITRITE,URINE NEGATIVE (NEG); PH,URINE 5.5; PROTEIN,URINE 30 mg/dL (NEG-TRACE); UROBILINOGEN,URINE 0.2 mg/dL (0.2 mg/dL)
[2019-03-04 10:25] LABS: BACTERIA,URINE MANY /HPF (0-FEW); RBC,URINE 0 /HPF (0-2); SQUAMOUS EPITHELIAL CELL,UR FEW /LPF
[2019-03-04 10:36] LABS: BASO % 0 % (0-3); EOS # 0.1 x10^3/uL (0.0-0.7); EOS % 1 % (0-3); HEMATOCRIT 38.5 % (36.0-47.0); HEMOGLOBIN 12.5 g/dL (12.0-15.5); LYMPH # 1.8 x10^3/uL (1.0-4.8); LYMPH % 19 % (24-48); MEAN CORPUSCULAR HEMOGLOBIN 26 pg (25-35); MEAN CORPUSCULAR HGB CONC 33 g/dL (31-37); MEAN CORPUSCULAR VOLUME 78 fL (79-100); MONO # 0.7 x10^3/uL (0.0-1.1); MONO % 7 % (0-9); NEUT # 6.7 x10^3/uL (1.8-7.7); NEUT % 72 % (31-73); PLATELET COUNT 222 x10^3/uL (140-400); RED BLOOD COUNT 4.91 x10^6/uL (3.50-5.40); RED CELL DISTRIBUTION WIDTH 14.9 % (11.5-14.5); WHITE BLOOD COUNT 9.3 x10^3/uL (4.0-11.0)
[2019-03-04 11:55] LABS: CREATININE 0.6 mg/dL (0.6-1.0); GFR 151.3; POTASSIUM 4.1 mmol/L (3.5-5.1)
[2019-03-04 11:59] LABS: ALBUMIN 3.4 g/dL (3.4-5.0); ALBUMIN/GLOBULIN RATIO 0.9 (1.0-1.7); TOTAL BILIRUBIN 0.3 mg/dL (0.2-1.0); TOTAL PROTEIN 7.2 g/dL (6.4-8.2)
[2019-03-04 12:15] VITALS: BP 133/74
--- NOTE | 2019-03-04 15:55 | PHYS DOC ---
Past Medical History Past Medical History: Hypertension Additional Past Medical Histor: BV Past Surgical History: No Surgical History Alcohol Use: None Drug Use: None Adult General Chief Complaint Chief Complaint: DIZZY/LIGHT HEADED HPI HPI Patient is a 23 year old female presenting with headache. This is a dull headache front of the head she has headaches 4 days out of 7 every week for a long time she tells me she felt a little dizzy and lightheaded so she came to the emergency room for evaluation from work because her blood pressure was in the 160 systolic. She is 15 weeks no fever no chest pain Vision is normal no numbness tingling or weakness. Symptoms are currently slightly improved Review of Systems Review of Systems Constitutional: Denies fever or chills [] Eyes: Denies change in visual acuity, redness, or eye pain [] HENT: Denies nasal congestion or sore throat [] Respiratory: Denies cough or shortness of breath [] Cardiovascular: No additional information not addressed in HPI [] GI: Denies abdominal pain, nausea, vomiting, bloody stools or diarrhea [] : Denies dysuria or hematuria [] Musculoskeletal: Denies back pain or joint pain [] All other systems were reviewed and found to be within normal limits, except as documented in this note. Current Medications Current Medications Current Medications Medications (Trade) Dose Ordered Sig/Seven Start Time Stop Time Status Last Admin Dose Admin Acetaminophen (Tylenol) 1,000 mg 1X ONCE 03/04/19 10:00 03/04/19 10:01 DC 03/04/19 10:02 1,000 MG Allergies Allergies Allergies Coded Allergies Type Severity Reaction Last Updated Verified No Known Drug Allergies 05/27/16 No Physical Exam Physical Exam Constitutional: Well developed, well nourished, no acute distress, non-toxic appearance. [] HENT: Normocephalic, atraumatic, bilateral external ears normal, oropharynx moist, no oral exudates, nose normal. [] Eyes: PERRLA, EOMI, conjunctiva normal, no discharge. [] Neck: Normal range of motion, no tenderness, supple, no stridor. [] Cardiovascular:Heart rate regular rhythm, no murmur [] Lungs & Thorax: Bilateral breath sounds clear to auscultation [] Abdomen: Bowel sounds normal, soft, no tenderness, no masses, no pulsatile masses. [] Skin: Warm, dry, no erythema, no rash. [] Back: No tenderness, no CVA tenderness. [] Extremities: No tenderness, no cyanosis, no clubbing, ROM intact, no edema. [] Neurologic: Alert and oriented X 3, normal motor function, normal sensory function, no focal deficits noted. [] Psychologic: Affect normal, judgement normal, mood normal. [] Current Patient Data Vital Signs Vital Signs Date Time Temp Pulse Resp B/P (MAP) Pulse Ox O2 Delivery O2 Flow Rate FiO2 03/04/19 12:15 86 16 100 03/04/19 09:46 98.4 152/79 (103) Room Air 98.4 Lab Values Laboratory Tests Test 03/04/19 09:35 03/04/19 09:37 03/04/19 10:10 03/04/19 11:30 Urine Collection Type Unknown Urine Color Yellow Urine Clarity Cloudy Urine pH 5.5 Urine Specific [place] >=1.030 Urine Protein 30 mg/dL (NEG-TRACE) Urine Glucose (UA) Negative mg/dL (NEG) Urine Ketones (Stick) Negative mg/dL (NEG) Urine Blood Negative (NEG) Urine Nitrite Negative (NEG) Urine Bilirubin Negative (NEG) Urine Urobilinogen Dipstick 0.2 mg/dL (0.2 mg/dL) Urine Leukocyte Esterase Small (NEG) Urine RBC 0 /HPF (0-2) Urine WBC 5-10 /HPF (0-4) Urine Squamous Epithelial Cells Few /LPF Urine Bacteria Many /HPF (0-FEW) Urine Mucus Mod /LPF POC Urine HCG, Qualitative Hcg positive (Negative) White Blood Count 9.3 x10^3/uL (4.0-11.0) Red Blood Count 4.91 x10^6/uL (3.50-5.40) Hemoglobin 12.5 g/dL (12.0-15.5) Hematocrit 38.5 % (36.0-47.0) Mean Corpuscular Volume 78 fL (79-100) L Mean Corpuscular Hemoglobin 26 pg (25-35) Mean Corpuscular Hemoglobin Concent 33 g/dL (31-37) Red Cell Distribution Width 14.9 % (11.5-14.5) H Platelet Count 222 x10^3/uL (140-400) Neutrophils (%) (Auto) 72 % (31-73) Lymphocytes (%) (Auto) 19 % (24-48) L Monocytes (%) (Auto) 7 % (0-9) Eosinophils (%) (Auto) 1 % (0-3) Basophils (%) (Auto) 0 % (0-3) Neutrophils # (Auto) 6.7 x10^3/uL (1.8-7.7) Lymphocytes # (Auto) 1.8 x10^3/uL (1.0-4.8) Monocytes # (Auto) 0.7 x10^3/uL (0.0-1.1) Eosinophils # (Auto) 0.1 x10^3/uL (0.0-0.7) Basophils # (Auto) 0.0 x10^3/uL (0.0-0.2) Sodium Level 138 mmol/L (136-145) Potassium Level 4.1 mmol/L (3.5-5.1) Chloride Level 104 mmol/L (98-107) Carbon Dioxide Level 23 mmol/L (21-32) Anion Gap 11 (6-14) Blood Urea Nitrogen 7 mg/dL (7-20) Creatinine 0.6 mg/dL (0.6-1.0) Estimated GFR (Cockcroft-Gault) 151.3 BUN/Creatinine Ratio 12 (6-20) Glucose Level 86 mg/dL (70-99) Calcium Level 9.0 mg/dL (8.5-10.1) Total Bilirubin 0.3 mg/dL (0.2-1.0) Aspartate Amino Transferase (AST) 12 U/L (15-37) L Alanine Aminotransferase (ALT) 12 U/L (14-59) L Alkaline Phosphatase 57 U/L (46-116) Total Protein 7.2 g/dL (6.4-8.2) Albumin 3.4 g/dL (3.4-5.0) Albumin/Globulin Ratio 0.9 (1.0-1.7) L Laboratory Tests 03/04/19 10:10 Laboratory Tests 03/04/19 11:30 EKG EKG [] Radiology/Procedures Radiology/Procedures [] Course & Med Decision Making Course & Med Decision Making Pertinent Labs and Imaging studies reviewed. (See chart for details) []In the emergency room blood pressure was better and was in the mid 130s on reevaluation with no antihypertensive treatment. 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 Dragon Disclaimer Dragon Disclaimer This electronic medical record was generated, in whole or in part, using a voice recognition dictation system. Departure Departure Impression: Primary Impression: Headache Disposition: HOME, SELF-CARE Condition: STABLE Patient Instructions: Headache, FAQs KARYNA LUU MD Mar 04, 2019 15:55
== END 2019-03-04 12:25 | disposition home or self-care (01) ==
LOC: ER 09:22
DX: O26.892 Other specified pregnancy related conditions, second trimester (principal); R51 Headache; R42 Dizziness and giddiness; O16.2 Unspecified maternal hypertension, second trimester; Z3A.15 15 weeks gestation of pregnancy
CPT/HCPCS: 36415; 80053; 81001; 81025; 85025; 87086; 99284

== ENCOUNTER 2019-03-11 09:03 | Emergency (ER) | payer OTHER ==
[~2019-03-11] VITALS: Ht 175.3 cm; Wt 131.1 kg
--- NOTE | 2019-03-11 09:36 | PHYS DOC ---
Past Medical History Past Medical History: Hypertension Additional Past Medical Histor: BV Past Surgical History: No Surgical History Alcohol Use: None Drug Use: None Adult General Chief Complaint Chief Complaint: SYNCOPE HPI HPI Patient is a 23 year old Female who presents with 15 weeks was here last week for frontal lobe headache and dizziness. Patient states the dizziness and frontal lobe headache has gotten worse. Patient states the symptoms come and go. Patient states this morning she had a frontal lobe headache with some dizziness is worsened usual and passed out. Patient states she is unsure of how long she had passed out for. Patient states she woke up on the floor and her children were standing over her. Patient states she began having some nausea but has been going on since last week. Patient states she has not been vomiting. Patient states she has not ate any food yet today. Patient states she does not usually eat any breakfast. Review of Systems Review of Systems Constitutional: Denies fever or chills [] Eyes: Denies change in visual acuity, redness, or eye pain [] HENT: Denies nasal congestion or sore throat [] Respiratory: Denies cough or shortness of breath [] GI: Denies abdominal pain, +nausea, denies vomiting, bloody stools or diarrhea [] : Denies dysuria or hematuria [] Musculoskeletal: Denies back pain or joint pain [] Integument: Denies rash or skin lesions [] Neurologic: headache, syncope. denies focal weakness or sensory changes [] All other systems were reviewed and found to be within normal limits, except as documented in this note. Current Medications Current Medications Current Medications Medications (Trade) Dose Ordered Sig/[facility] Start Time Stop Time Status Last Admin Dose Admin Acetaminophen (Tylenol) 650 mg 1X ONCE 03/11/19 10:15 03/11/19 10:16 DC 03/11/19 10:44 650 MG Ondansetron HCl (Zofran) 4 mg 1X ONCE 03/11/19 09:45 03/11/19 09:46 DC 03/11/19 10:44 4 MG Sodium Chloride 1,000 ml @ 1,000 mls/hr 1X ONCE 03/11/19 09:45 03/11/19 10:44 DC 03/11/19 10:44 1,000 MLS/HR Allergies Allergies Allergies Coded Allergies Type Severity Reaction Last Updated Verified No Known Drug Allergies 05/27/16 No Physical Exam Physical Exam Constitutional: Well developed, well nourished, no acute distress, non-toxic appearance. [] HENT: Normocephalic, atraumatic, bilateral external ears normal, oropharynx moist, no oral exudates, nose normal. [] Eyes: PERRLA, EOMI, conjunctiva normal, no discharge. [] Neck: Normal range of motion, no tenderness, supple, no stridor. [] Cardiovascular:Heart rate regular rhythm, no murmur [] Lungs & Thorax: Bilateral breath sounds clear to auscultation [] Abdomen: Bowel sounds normal, soft, no tenderness, no masses, no pulsatile masses. [] Skin: Warm, dry, no erythema, no rash. [] Back: No tenderness, no CVA tenderness. [] Extremities: No tenderness, no cyanosis, no clubbing, ROM intact, no edema. [] Neurologic: Alert and oriented X 3, normal motor function, normal sensory function, no focal deficits noted. [] Psychologic: Affect normal, judgement normal, mood normal. Normal Physical Exam[] Current Patient Data Vital Signs Vital Signs Date Time Temp Pulse Resp B/P (MAP) Pulse Ox O2 Delivery O2 Flow Rate FiO2 03/11/19 09:49 103 154/96 (115) 03/11/19 09:32 97.8 16 98 Room Air 97.8 Lab Values Laboratory Tests Test 03/11/19 09:10 03/11/19 09:15 03/11/19 09:31 Urine Collection Type Unknown Urine Color Yellow Urine Clarity Cloudy Urine pH 8.0 Urine Specific [place] 1.025 Urine Protein Negative mg/dL (NEG-TRACE) Urine Glucose (UA) Negative mg/dL (NEG) Urine Ketones (Stick) Negative mg/dL (NEG) Urine Blood Negative (NEG) Urine Nitrite Negative (NEG) Urine Bilirubin Negative (NEG) Urine Urobilinogen Dipstick 0.2 mg/dL (0.2 mg/dL) Urine Leukocyte Esterase Negative (NEG) Urine RBC 0 /HPF (0-2) Urine WBC 0 /HPF (0-4) Urine Squamous Epithelial Cells Mod /LPF Urine Amorphous Sediment Present /HPF Urine Bacteria Few /HPF (0-FEW) POC Urine HCG, Qualitative Hcg positive (Negative) White Blood Count 8.9 x10^3/uL (4.0-11.0) Red Blood Count 4.79 x10^6/uL (3.50-5.40) Hemoglobin 12.5 g/dL (12.0-15.5) Hematocrit 37.1 % (36.0-47.0) Mean Corpuscular Volume 78 fL (79-100) L Mean Corpuscular Hemoglobin 26 pg (25-35) Mean Corpuscular Hemoglobin Concent 34 g/dL (31-37) Red Cell Distribution Width 14.7 % (11.5-14.5) H Platelet Count 202 x10^3/uL (140-400) Neutrophils (%) (Auto) 75 % (31-73) H Lymphocytes (%) (Auto) 19 % (24-48) L Monocytes (%) (Auto) 6 % (0-9) Eosinophils (%) (Auto) 1 % (0-3) Basophils (%) (Auto) 0 % (0-3) Neutrophils # (Auto) 6.6 x10^3/uL (1.8-7.7) Lymphocytes # (Auto) 1.7 x10^3/uL (1.0-4.8) Monocytes # (Auto) 0.5 x10^3/uL (0.0-1.1) Eosinophils # (Auto) 0.1 x10^3/uL (0.0-0.7) Basophils # (Auto) 0.0 x10^3/uL (0.0-0.2) Sodium Level 138 mmol/L (136-145) Potassium Level 3.8 mmol/L (3.5-5.1) Chloride Level 103 mmol/L (98-107) Carbon Dioxide Level 24 mmol/L (21-32) Anion Gap 11 (6-14) Blood Urea Nitrogen 7 mg/dL (7-20) Creatinine 0.5 mg/dL (0.6-1.0) L Estimated GFR (Cockcroft-Gault) 186.7 BUN/Creatinine Ratio 14 (6-20) Glucose Level 88 mg/dL (70-99) Calcium Level 9.1 mg/dL (8.5-10.1) Total Bilirubin 0.5 mg/dL (0.2-1.0) Aspartate Amino Transferase (AST) 12 U/L (15-37) L Alanine Aminotransferase (ALT) 13 U/L (14-59) L Alkaline Phosphatase 58 U/L (46-116) Total Protein 7.5 g/dL (6.4-8.2) Albumin 3.4 g/dL (3.4-5.0) Albumin/Globulin Ratio 0.8 (1.0-1.7) L Laboratory Tests 03/11/19 09:31 Laboratory Tests 03/11/19 09:31 EKG EKG Sinus Rhythm and no STEMI[] Interpretation Time: [address] Bueno Radiology/Procedures Radiology/Procedures [] Course & Med Decision Making Course & Med Decision Making Patient is a 23 year old Female who presents with 15 weeks was here last week for frontal lobe headache and dizziness. Patient states the dizziness and frontal lobe headache has gotten worse. Patient states the symptoms come and go. Patient states this morning she had a frontal lobe headache with some dizziness is worsened usual and passed out. Patient states she is unsure of how long she had passed out for. Patient states she woke up on the floor and her children were standing over her. Patient states she began having some nausea but has been going on since last week. Patient states she has not been vomiting. Patient states she has not ate any food yet today. Patient states she does not usually eat any breakfast. Patient denies chest pain, abdominal pain, vaginal bleeding, hitting her head, neck pain, back pain, shortness of air, numbness or tingling, visual changes, weaknesses, pain with taking a breath. No neurological symptoms. Denies any injuries from her fall. Denies this being the worst headache she has ever felt. No extremity edema. No calf tenderness. PERRLA. Lungs are clear to auscultation all lobes. Speaks in full clear sentences. Ambulatory with a steady gait. No weaknesses. She denies any weaknesses. Patient states she is not dizzy at this time but she has a frontal lobe headache she rates at a 5 out of 10. She denies any dysuria symptoms. Patient's blood pressure is 132/73. Patient has a history of hypertension and states that her OB, Dr Young, at took her off of the medication she was on due to it not being compatible with . Patient states she has not been on any new medications for her blood pressure. Patient has had a US by her OB provider for this and patient states there were no complications. Orthostatics negative. heart tones 150. Patient's blood work and urinalysis is not consistent with preeclampsia. Patient current blood pressure is 147/72. I have spoken to Dr Bueno about this patient. Dr Bueno states that the only thing that has not been done for this patient would be a CT of the head. This is explained to the patient along with the potential for radiat ion to the baby and the risks that come with this. Patient is told that the things I would be looking for is a brain bleed or other potential life threatening things that could possibly be causing her headache and now syncope. Patient states her understanding of this and agrees to the CT. 1140: Patient refused CT scan when radiology came in to have her sign a waiver. Patient states she understands why the CT would be important but now is refusing and wants to follow up with her doctor. Patient is stable in no distress. Patient is currently having no symptoms. Dragon Disclaimer Dragon Disclaimer This electronic medical record was generated, in whole or in part, using a voice recognition dictation system. NIHSS Stroke Scale NIH Stroke Scale: NIH Stroke Scale Response (Comments) Value Level of Consciousness: 0 Alert/Responsive 0 LOC Questions: 0 Answers both correctly 0 LOC Commands: 0 Performs both tasks 0 Best Gaze: 0 Normal 0 Visual: 0 No visual loss 0 Facial Palsy: 0 Normal, symmetrical 0 Motor - Left Arm 0 No drift 0 Motor - Right Arm 0 No drift 0 Motor - Left Leg 0 No drift 0 Motor: Right Leg 0 No drift 0 Limb Ataxia: 0 Absent 0 Sensory: 0 No loss 0 Best Language: 0 Normal 0 Dysathria: 0 Normal 0 Extinction and Inattention: 0 Normal 0 Total 0 PERC Rule for PE PERC Rule for PE Response (Comments) Value Age > 50: No 0 HR > 100: No 0 Sa02 on room air <95%: No 0 Unilateral leg swelling: No 0 Hemoptysis: No 0 Recent surgery or trauma: No 0 Prior PE or DVT: No 0 Hormone use: No 0 Total 0 Departure Departure Impression: Primary Impression: Headache Additional Impression: Syncope Disposition: 01 HOME, SELF-CARE Condition: STABLE Referrals: UNKNOWN PCP NAME (PCP) Patient Instructions: General Headache Without Cause, Syncope Additional Instructions: Call your OB doctor in follow-up as soon as possible. Drink plenty of fluids. Eat at least 3 meals a day. Problem Qualifiers Primary Impression: Headache Headache type: unspecified Headache chronicity pattern: chronic headache Intractability: not intractable Qualified Codes: R51 - Headache Additional Impression: Syncope Syncope type: unspecified Qualified Codes: R55 - Syncope and collapse ARIEL DELAROSA SCRAP BALLER Mar 11, 2019 09:36
[2019-03-11 09:41] LABS: BILIRUBIN,URINE NEGATIVE (NEG); CLARITY,URINE CLOUDY; COLOR,URINE YELLOW; NITRITE,URINE NEGATIVE (NEG); PROTEIN,URINE NEGATIVE (NEG-TRACE); UROBILINOGEN,URINE 0.2 mg/dL (0.2 mg/dL)
[2019-03-11] MEDS ORDERED: ONDANSETRON PF 4 MG/2 ML VIAL. IV ONE (09:45)
[2019-03-11] MEDS ORDERED: IV NORMAL SALINE 1000ML BAG 1,000 ML IV ONE (09:45)
--- NOTE | 2019-03-11 09:51 | EKG ---
[facility] [address] [place] [address] Test Date: 2019-03-11 Test Time: 09:40:42 Pat Name: CRYSTAL NOVOA Department: Room: Gender: F Staff Physician: : [id number] Requested By: ARIEL DELAROSA Order Number: [id number] Reading MD: Measurements Intervals [place] Rate: 76 P: 44 IA: 166 QRS: 62 QRSD: 90 T: 20 QT: 394 QTc: 448 Interpretive Statements SINUS RHYTHM QRS(T) CONTOUR ABNORMALITY CONSIDER INFERIOR MYOCARDIAL DAMAGE POSSIBLY ABNORMAL ECG RI6.01 Unconfirmed report No previous ECG available for comparison
[2019-03-11 09:58] LABS: AMORPHOUS SEDIMENT,UR PRESENT /HPF; BACTERIA,URINE FEW /HPF (0-FEW); RBC,URINE 0 /HPF (0-2); SQUAMOUS EPITHELIAL CELL,UR MOD /LPF; WBC,URINE 0 /HPF (0-4)
[2019-03-11 09:59] LABS: BASO % 0 % (0-3); EOS # 0.1 x10^3/uL (0.0-0.7); EOS % 1 % (0-3); HEMATOCRIT 37.1 % (36.0-47.0); HEMOGLOBIN 12.5 g/dL (12.0-15.5); LYMPH # 1.7 x10^3/uL (1.0-4.8); LYMPH % 19 % (24-48); MEAN CORPUSCULAR HEMOGLOBIN 26 pg (25-35); MEAN CORPUSCULAR HGB CONC 34 g/dL (31-37); MEAN CORPUSCULAR VOLUME 78 fL (79-100); MONO # 0.5 x10^3/uL (0.0-1.1); MONO % 6 % (0-9); NEUT # 6.6 x10^3/uL (1.8-7.7); NEUT % 75 % (31-73); PLATELET COUNT 202 x10^3/uL (140-400); RED BLOOD COUNT 4.79 x10^6/uL (3.50-5.40); RED CELL DISTRIBUTION WIDTH 14.7 % (11.5-14.5); WHITE BLOOD COUNT 8.9 x10^3/uL (4.0-11.0)
[2019-03-11] MEDS ORDERED: ACETAMINOPHEN 325 MG TABLET. PO ONE (10:15)
[2019-03-11 10:22] LABS: CALCIUM 9.1 mg/dL (8.5-10.1); CREATININE 0.5 mg/dL (0.6-1.0); GFR 186.7; POTASSIUM 3.8 mmol/L (3.5-5.1)
[2019-03-11 10:27] LABS: ALBUMIN 3.4 g/dL (3.4-5.0); ALBUMIN/GLOBULIN RATIO 0.8 (1.0-1.7); TOTAL BILIRUBIN 0.5 mg/dL (0.2-1.0); TOTAL PROTEIN 7.5 g/dL (6.4-8.2)
[2019-03-11 10:40] VITALS: BP 147/72
== END 2019-03-11 12:08 | disposition home or self-care (01) ==
LOC: ER 09:03
DX: R51 Headache (principal); R55 Syncope and collapse; I10 Essential (primary) hypertension
CPT/HCPCS: 36415; 80053; 81001; 81025; 85025; 93005; 96361; 96374; 99285; J2405; J7030

== ENCOUNTER 2019-05-12 15:35 | Emergency (ER) | payer OTHER ==
[~2019-05-12] VITALS: Ht 175.3 cm; Wt 128.8 kg
[~2019-05-12 15:35] MED LIST changes: +PRED20TA PO
[2019-05-12 15:51] LABS: BILIRUBIN,URINE NEGATIVE (NEG); CLARITY,URINE TURBID; COLOR,URINE YELLOW; NITRITE,URINE NEGATIVE (NEG); PROTEIN,URINE NEGATIVE (NEG-TRACE)
[2019-05-12 15:57] LABS: BACTERIA,URINE FEW /HPF (0-FEW); RBC,URINE OCC /HPF (0-2); SQUAMOUS EPITHELIAL CELL,UR MOD /LPF; WBC,URINE OCC /HPF (0-4)
--- NOTE | 2019-05-12 16:41 | PHYS DOC ---
Past Medical History Past Medical History: Hypertension, UTI Additional Past Medical Histor: BV Past Surgical History: No Surgical History Alcohol Use: None Drug Use: None Adult General Chief Complaint Chief Complaint: PAIN ON URINATION HPI HPI patient is a pleasant 23-year-old female, 4, para 2, aborta 1, at approximately 24 weeks' gestation, who presents to the emergency department for evaluation. She states that she has had some right mid abdominal pain which has been transient, usually occurring just after urination. She has not had any actual dysuria in terms of discomfort at her urethra. She denies any flank pain, and is not having any pain at this time. She reports positive movement, denies any abdominal pain currently, vaginal bleeding, discharge, urinary frequency, foul odor or discoloration or cloudiness to her urine. She states she is prone to UTIs and wanted to make sure she was not developing one. She has no other concerns at this time. Review of Systems Review of Systems Constitutional: Denies fever or chills [] GI: Denies current abdominal pain, nausea, vomiting, bloody stools or diarrhea [] : Denies dysuria or hematuria [] Musculoskeletal: Denies back pain or joint pain [] Integument: Denies rash or skin lesions [] Endocrine: Denies polyuria or polydipsia [] Allergies Allergies Allergies Coded Allergies Type Severity Reaction Last Updated Verified No Known Drug Allergies 05/27/16 No Physical Exam Physical Exam PHYSICAL EXAM: CONSTITUTIONAL: Well developed, well nourished HEAD: normocephalic, atraumatic EENT: PERRL, EOMI. Conjunctivae normal color, sclerae non-icteric; moist mucous membranes. NECK: Supple, non-tender; no meningismus. LUNGS: Lungs CTA, breathing even and unlabored. Normal air movement. HEART: Regular rate and rhythm, no murmur CHEST: No deformity; non-tender ABDOMEN: The abdomen is soft, and non-tender, no masses or bruits. The gravid uterus is palpable and nontender. There is no reproducible tenderness to palpation of the abdomen. EXTREM: Normal ROM; no deformity, no calf tenderness. Normal pulses palpable in all extremities. There is no pedal edema. SKIN: No rash; no diaphoresis NEURO: Alert; normal speech and cognition; CN's grossly intact; strength grossly intact without focal deficit. BACK: No CVA TTP. Current Patient Data Vital Signs Vital Signs Date Time Temp Pulse Resp B/P (MAP) Pulse Ox O2 Delivery O2 Flow Rate FiO2 05/12/19 15:50 97.7 90 16 153/76 (101) 99 Room Air 97.7 Lab Values Laboratory Tests Test 05/12/19 15:40 Urine Collection Type Unknown Urine Color Yellow Urine Clarity Turbid Urine pH 6.0 Urine Specific [place] >=1.030 Urine Protein Negative mg/dL (NEG-TRACE) Urine Glucose (UA) Negative mg/dL (NEG) Urine Ketones (Stick) Negative mg/dL (NEG) Urine Blood Negative (NEG) Urine Nitrite Negative (NEG) Urine Bilirubin Negative (NEG) Urine Urobilinogen Dipstick 1.0 mg/dL (0.2 mg/dL) Urine Leukocyte Esterase Negative (NEG) Urine RBC Occ /HPF (0-2) Urine WBC Occ /HPF (0-4) Urine Squamous Epithelial Cells Mod /LPF Urine Bacteria Few /HPF (0-FEW) Urine Mucus Marked /LPF EKG EKG [] Radiology/Procedures Radiology/Procedures [] Course & Med Decision Making Course & Med Decision Making Pertinent Lab studies reviewed. (See chart for details) []4:35 PM: Patient condition remained stable. I discussed test results, the need for close ORTHOPAEDIC NURSE follow-up and return precautions. Her urinalysis and symptoms are not highly suggestive of UTI and she'll be managed expectantly. Dragon Disclaimer Dragon Disclaimer This electronic medical record was generated, in whole or in part, using a voice recognition dictation system. Departure Departure Impression: Primary Impression: Dysuria Additional Impression: Disposition: 01 HOME, SELF-CARE Condition: STABLE Referrals: ЮЛИЯ SÁNCHEZ MD (PCP) Patient Instructions: Abdominal Pain During , Dysuria Problem Qualifiers SEBASTIAN MORAN MD May 12, 2019 16:41
[2019-05-12 17:15] VITALS: BP 142/78
== END 2019-05-12 17:18 | disposition home or self-care (01) ==
LOC: ER 15:35
DX: O26.892 Other specified pregnancy related conditions, second trimester (principal); R30.0 Dysuria; O16.2 Unspecified maternal hypertension, second trimester; Z3A.24 24 weeks gestation of pregnancy; Z87.440 Personal history of urinary (tract) infections
CPT/HCPCS: 81001; 87086; 99284

== ENCOUNTER 2019-05-20 13:10 | Observation (INO) | payer OTHER ==
[~2019-05-20] VITALS: Ht 175.3 cm; Wt 131.5 kg
[2019-05-20] MEDS ORDERED: IV RINGERS,LACTATED 1000ML 1,000 ML IV SCH (13:12)
[2019-05-20 13:41] LABS: BILIRUBIN,URINE NEGATIVE (NEG); CLARITY,URINE CLEAR; COLOR,URINE YELLOW; NITRITE,URINE NEGATIVE (NEG); PROTEIN,URINE NEGATIVE (NEG-TRACE)
[2019-05-20 13:54] LABS: BACTERIA,URINE FEW /HPF (0-FEW); RBC,URINE 0 /HPF (0-2)
== END 2019-05-20 14:20 | disposition home or self-care (01) ==
LOC: 3 SO LND 13:10
PROVIDERS: ADMIT Obstetrics & Gynecology; ATTEND Obstetrics & Gynecology
DX: O26.892 Other specified pregnancy related conditions, second trimester (principal); R10.9 Unspecified abdominal pain; Z3A.25 25 weeks gestation of pregnancy
CPT/HCPCS: 81001; G0379

== ENCOUNTER 2020-01-20 21:33 | Emergency (ER) | payer OTHER ==
[~2020-01-20] VITALS: Ht 175.3 cm; Wt 127.3 kg
[2020-01-20 21:48] VITALS: BP 166/88
--- NOTE | 2020-01-20 22:18 | PHYS DOC ---
Past Medical History Past Medical History: Hypertension, UTI Additional Past Medical Histor: BV Past Surgical History: Other Additional Past Surgical Histo: "TUBES IN EARS WHEN LITTLE" Smoking Status: Never Smoker Alcohol Use: Occasionally Drug Use: None General Adult EDM: Chief Complaint: EARACHE/EAR PAIN HPI: HPI: Patient is a 24-year-old female who presents with 1 day history of bilateral ear pain left greater than right. Patient has had minor congestion without fever cough and has had her daughter who is sick at daycare as well over the last 2 days. Patient has any vomiting or diarrhea. Review of Systems: Review of Systems: Constitutional: Denies fever or chills. [] Eyes: Denies change in visual acuity. [] HENT: Complains of nasal congestion and bilateral ear pain Respiratory: Denies cough or shortness of breath. [] Cardiovascular: Denies chest pain or edema. [] GI: Denies abdominal pain, nausea, vomiting, bloody stools or diarrhea. [] : Denies dysuria. [] Musculoskeletal: Denies back pain or joint pain. [] Integument: Denies rash. [] Neurologic: Denies headache, focal weakness or sensory changes. [] Endocrine: Denies polyuria or polydipsia. [] Lymphatic: Denies swollen glands. [] Psychiatric: Denies depression or anxiety. [] Heart Score: Risk Factors: Risk Factors: DM, Current or recent (<one month) smoker, HTN, HLP, family history of CAD, obesity. Risk Scores: Score 0 - 3: 2.5% MACE over next 6 weeks - Discharge Home Score 4 - 6: 20.3% MACE over next 6 weeks - Admit for Clinical Observation Score 7 - 10: 72.7% MACE over next 6 weeks - Early Invasive Strategies Allergies: Allergies: Allergies Coded Allergies Type Severity Reaction Last Updated Verified No Known Drug Allergies 05/27/16 No Physical Exam: PE: Constitutional: Well developed, well nourished, no acute distress, non-toxic a ppearance. HENT: No trismus, mild pharyngeal erythema without tonsillar exudate or abscess. Bilateral TMs with erythema and retracted. Eyes: Conjunctiva clear, EOMI Neck: Normal range of motion, no tenderness, supple, no stridor. [] Cardiovascular: Regular rate/rhythm, peripheral pulse intact, [employer]CH[employer] intact Lungs & Thorax: No respiratory distress Abdomen: No distension Skin: Diffuse: Intact, no rash Back: Full ROM Extremities: Normal inspection, no edema Neurologic: Alert and oriented X 3, normal motor function, , no focal deficits noted. Psychologic: Affect normal, judgement normal, mood normal. Current Patient Data: Vital Signs: Vital Signs Date Time Temp Pulse Resp B/P (MAP) Pulse Ox O2 Delivery O2 Flow Rate FiO2 01/20/20 21:48 98.6 90 16 166/88 (114) 99 Room Air 98.6 EKG: EKG: [] Radiology/Procedures: Radiology/Procedures: [] Course & Med Decision Making: Course & Med Decision Making Pertinent Labs and Imaging studies reviewed. (See chart for details) [] Signs and symptoms consistent with URI and bilateral ear infection. Patient was placed on antibiotics. Dragon Disclaimer: Dragon Disclaimer: This electronic medical record was generated, in whole or in part, using a voice recognition dictation system. Departure Departure Impression: Primary Impression: Bilateral otitis media Disposition: HOME, SELF-CARE Condition: STABLE Referrals: ЮЛИЯ SÁNCHEZ MD (PCP) 2-3 days Patient Instructions: Otitis Media, Adult Additional Instructions: EMERGENCY DEPARTMENT GENERAL DISCHARGE INSTRUCTIONS Thank you for coming to [facility] Emergency Department (ED) today and trusting us with you care. We trust that you had a positivie experience in our Emergency Department. If you wish to speak to the department management, you may call the sirector at [phone]. YOUR FOLLOW UP INSTRUCTIONS ARE FOLLOWS: 1. Do you have a private Doctor? If you do not have a private doctir, please ask for a resource list of physicians or clinics that may be able to assist you with follow up care. 2. The Emergency Physicain has interpreted your x-rays. The X-Ray specialist will also review them. If there is a change in the findingd, you will be notified in 48 hours when at all possible. 3. A lab test or culture has been done, your results will be reviewed and you will be notified if you need a change in treatment. ADDITIONAL INSTRUCTIONS AND INFORMATION: 1. Your care today has been supervised by a physician who is specially trained in emergency care. Many problems require more than one evaluation for a complete diagnosis and treatment. We recommend that you schedule your follow up appointment as recommended to ensure complete treatment of you illness or injury. If you are unable to obtain follow up care and continue to have a problem, or if your consition worsens, we recommend that you return to the ED. 2. We are not able to safelymdetermine your condition over the phone nor are we able to give sound medical advice over the phone. For these safety reasons, if you call for medical advice we will ask you to come to the ED for further evaluation. 3. If you have any questions regarding these discharge instructions please call the ED at [phone]. SAFETY INFORMATION: In the interest of safety, wellness, and injury prevention; we encourage you to wear your sealbelt, if you smoke; quite smoking, and we encourage family to use a protective helmet for bicycling and other sporting events that present an increased risk for head injusry. IF YOUR SYMPTOMS WORSEN OR NEW SYMPTOMS DEVELOP, OR YOU HAVE CONCERNS ABOUT YOUR CONDITION; OR IF YOUR CONDITION WORSENS WHILE YOU ARE WAITING FOR YOUR FOLLOW UP APPOINTMENT; EITHER CONTACT YOUR PRIMARY CARE DOCTOR, THE PHYSICIAN WHOSE NAME AND NUMBER YOU WERE GIVEN, OR RETURN TO THE ED IMMEDIATELY. Scripts Amoxicillin (AMOXICILLIN) 500 Mg Capsule 1 CAP PO TID, #30 CAP Prov: TERI CASTRO MD 01/20/20 Justicifation of Admission Dx: Justifications for Admission: Justification of Admission Dx: N/A TERI CASTRO MD Jan 20, 2020 22:18
[2020-01-20] MEDS ORDERED: AMOX500C PO (22:21)
== END 2020-01-20 22:23 | disposition home or self-care (01) ==
LOC: ER 21:33
DX: H66.93 Otitis media, unspecified, bilateral (principal); R09.81 Nasal congestion; I10 Essential (primary) hypertension
CPT/HCPCS: 99283

== ENCOUNTER 2020-03-09 23:41 | Emergency (ER) | payer OTHER ==
[~2020-03-09] VITALS: Ht 208.3 cm; Wt 127.2 kg
[~2020-03-09 23:41] MED LIST changes: +AMOX500C PO
[2020-03-10 00:09] VITALS: BP 163/97
[2020-03-10] MEDS ORDERED: BACI1PAC4 TP (00:21)
--- NOTE | 2020-03-10 01:20 | PHYS DOC ---
Past Medical History Past Medical History: Hypertension, UTI Additional Past Medical Histor: BV Past Surgical History: Other Additional Past Surgical Histo: "TUBES IN EARS WHEN LITTLE" Smoking Status: Never Smoker Alcohol Use: Occasionally Drug Use: None General Adult EDM: Chief Complaint: INSECT BITE HPI: HPI: Patient is a 24 year old female presents for evaluation of insect bites bilateral lower extremities. Patient states yesterday she had a birthday democrat for her daughter and it was outside in the yard. Patient has multiple insect bites bilateral lower extremity that are associated with itch. The largest bite is located along patient's left medial knee. There is surrounding erythema measures about the size of a quarter it is nonfluctuant. Review of Systems: Review of Systems: Review of systems: Constitutional symptoms- No fever, no chills. Eyes- No Discharge, No Visual Loss Respiratory symptoms- No shortness of breath, No wheezing, No Dyspnea on Exertion Cardiovascular Systems; No chest pain, No Palpitations, No syncope Gastrointestinal symptoms: NO abdominal pain, no nausea, no vomiting or diarrhea. Genitourinary symptoms: No dysuria. Musculoskeletal symptoms: No back pain No extremity pain. NEUROLOGICAL Symptoms: No headache, no generalized weakness; No focal Weakness Skin positive insect bite positive pruritus Heart Score: Risk Factors: Risk Factors: DM, Current or recent (<one month) smoker, HTN, HLP, family history of CAD, obesity. Risk Scores: Score 0 - 3: 2.5% MACE over next 6 weeks - Discharge Home Score 4 - 6: 20.3% MACE over next 6 weeks - Admit for Clinical Observation Score 7 - 10: 72.7% MACE over next 6 weeks - Early Invasive Strategies Allergies: Allergies: Allergies Coded Allergies Type Severity Reaction Last Updated Verified No Known Drug Allergies 05/27/16 No Physical Exam: PE: General: alert, no acute distress. Skin: warm, dry and intact. Head:: Normocephalic, atraumatic. Neck: Trachea midline. Eyes: EOMI, Normal conjunctiva, No drainage CARDIOVASCULAR: Regular rate and rhythm RESPIRATORY: No respiratory distress Back: Full range of motion. MUSCULOSKELETAL: Full range of motion of bilateral upper and lower extremities. GASTROINTESTINAL: Abdomen soft without rebound or guarding. NEUROLOGICAL: Alert and noted to person, place and time. No neurological deficits observed Psychiatric: Cooperative. Normal judgment Skin bilateral lower extremities multiple small insect bite, erythema left knee 2 cm round nonfluctuant Current Patient Data: Vital Signs: Vital Signs Date Time Temp Pulse Resp B/P (MAP) Pulse Ox O2 Delivery O2 Flow Rate FiO2 03/10/20 00:09 98.7 79 20 163/97 (119) 100 Room Air 98.7 EKG: EKG: [] Radiology/Procedures: Radiology/Procedures: [] Course & Med Decision Making: Course & Med Decision Making Pertinent Labs and Imaging studies reviewed. (See chart for details) [] Dragon Disclaimer: Dragon Disclaimer: This electronic medical record was generated, in whole or in part, using a voice recognition dictation system. Departure Departure Impression: Primary Impression: Insect bite Disposition: HOME, SELF-CARE Condition: STABLE Patient Instructions: Insect Bite Scripts Bacitracin (BACITRACIN) 1 Each Packet 1 PACKET TP ONCE for 30 Days, #30 PACKET 0 Refills Prov: PAT MALDONADO DO 03/10/20 Justicifation of Admission Dx: Justifications for Admission: Justification of Admission Dx: N/A PAT MALDONADO DO Mar 10, 2020 01:20
== END 2020-03-10 00:34 | disposition home or self-care (01) ==
LOC: ER 23:41
DX: S80.862A Insect bite (nonvenomous), left lower leg, initial encounter (principal); S80.861A Insect bite (nonvenomous), right lower leg, initial encounter; I10 Essential (primary) hypertension; W57.XXXA Bitten or stung by nonvenomous insect and other nonvenomous arthropods, initial encounter; Y93.89 Activity, other specified; Y92.096 Garden or yard of other non-institutional residence as the place of occurrence of the external cause; Y99.8 Other external cause status
CPT/HCPCS: 99282

== ENCOUNTER 2020-05-06 23:08 | Emergency (ER) | payer OTHER ==
[~2020-05-06] VITALS: Ht 172.7 cm; Wt 127.3 kg
[~2020-05-06 23:08] MED LIST changes: +BACI1PAC4 TP
--- NOTE | 2020-05-06 23:36 | PHYS DOC ---
Past Medical History Past Medical History: Hypertension, UTI Additional Past Medical Histor: BV Past Surgical History: Other Additional Past Surgical Histo: "TUBES IN EARS WHEN LITTLE" Smoking Status: Never Smoker Alcohol Use: Occasionally Drug Use: None General Adult EDM: Chief Complaint: FLANK PAIN HPI: HPI: Patient is a 24 year old female who presented to ER today for evaluation of right upper quad abdominal pain that radiates to her right shoulder since earlier this morning. Patient denies any fever, no cough, no nausea vomiting. Patient states she had this problem when she was in high school 1 time. Patient denies any history of gallbladder problem, no history of kidney stone. Patient denies any urinary symptoms. Patient denies any injury. Review of Systems: Review of Systems: Constitutional: Denies fever or chills. [] Eyes: Denies change in visual acuity. [] HENT: Denies nasal congestion or sore throat. [] Respiratory: Denies cough or shortness of breath. [] Cardiovascular: Denies chest pain or edema. [] GI: Positive for right upper quad abdominal pain, no nausea vomiting, no bloody stool, no diarrhea. : Denies dysuria. [] Musculoskeletal: Denies back pain or joint pain. [] Integument: Denies rash. [] Neurologic: Denies headache, focal weakness or sensory changes. [] Endocrine: Denies polyuria or polydipsia. [] Lymphatic: Denies swollen glands. [] Psychiatric: Denies depression or anxiety. [] Heart Score: Risk Factors: Risk Factors: DM, Current or recent (<one month) smoker, HTN, HLP, family history of CAD, obesity. Risk Scores: Score 0 - 3: 2.5% MACE over next 6 weeks - Discharge Home Score 4 - 6: 20.3% MACE over next 6 weeks - Admit for Clinical Observation Score 7 - 10: 72.7% MACE over next 6 weeks - Early Invasive Strategies Allergies: Allergies: Allergies Coded Allergies Type Severity Reaction Last Updated Verified No Known Drug Allergies 05/27/16 No Physical Exam: PE: Constitutional: Well developed, well nourished, no acute distress, non-toxic appearance. [] HENT: Normocephalic, atraumatic, bilateral external ears normal, oropharynx moist, no oral exudates, nose normal. [] Eyes: PERRLA, EOMI, conjunctiva normal, no discharge. [] Neck: Normal range of motion, no tenderness, supple, no stridor. [] Cardiovascular:Heart rate regular rhythm, no murmur [] Lungs & Thorax: Bilateral breath sounds clear to auscultation [] Abdomen: Bowel sounds normal, soft, no tenderness, no masses, no pulsatile masses. [] Skin: Warm, dry, no erythema, no rash. [] Back: No tenderness, no CVA tenderness. [] Extremities: No tenderness, no cyanosis, no clubbing, ROM intact, no edema. [] Neurologic: Alert and oriented X 3, normal motor function, normal sensory function, no focal deficits noted. [] Psychologic: Affect normal, judgement normal, mood normal. [] Current Patient Data: Labs: Laboratory Tests Test 05/06/20 23:25 05/06/20 23:30 05/06/20 23:36 Urine Collection Type Void Urine Color Yellow Urine Clarity Clear Urine pH 6.0 Urine Specific Panora 1.025 Urine Protein Negative mg/dL Urine Glucose (UA) Negative mg/dL Urine Ketones (Stick) Negative mg/dL Urine Blood Negative Urine Nitrite Negative Urine Bilirubin Negative Urine Urobilinogen Dipstick 0.2 mg/dL Urine Leukocyte Esterase Small Urine RBC 0 /HPF Urine WBC 1-4 /HPF Urine Squamous Epithelial Cells Many /LPF Urine Bacteria Many /HPF Urine Mucus Marked /LPF White Blood Count 5.7 x10^3/uL Red Blood Count 5.40 x10^6/uL Hemoglobin 13.2 g/dL Hematocrit 41.0 % Mean Corpuscular Volume 76 fL Mean Corpuscular Hemoglobin 24 pg Mean Corpuscular Hemoglobin Concent 32 g/dL Red Cell Distribution Width 14.7 % Platelet Count 214 x10^3/uL Neutrophils (%) (Auto) 55 % Lymphocytes (%) (Auto) 31 % Monocytes (%) (Auto) 11 % Eosinophils (%) (Auto) 2 % Basophils (%) (Auto) 1 % Neutrophils # (Auto) 3.1 x10^3/uL Lymphocytes # (Auto) 1.8 x10^3/uL Monocytes # (Auto) 0.6 x10^3/uL Eosinophils # (Auto) 0.1 x10^3/uL Basophils # (Auto) 0.1 x10^3/uL Sodium Level 139 mmol/L Potassium Level 3.7 mmol/L Chloride Level 104 mmol/L Carbon Dioxide Level 27 mmol/L Anion Gap 8 Blood Urea Nitrogen 11 mg/dL Creatinine 0.7 mg/dL Estimated GFR (Cockcroft-Gault) 125.5 BUN/Creatinine Ratio 16 Glucose Level 103 mg/dL Calcium Level 9.1 mg/dL Total Bilirubin 0.1 mg/dL Aspartate Amino Transf (AST/SGOT) 18 U/L Alanine Aminotransferase (ALT/SGPT) 30 U/L Alkaline Phosphatase 71 U/L Total Protein 7.3 g/dL Albumin 3.5 g/dL Albumin/Globulin Ratio 0.9 Lipase 132 U/L Bedside Urine HCG, Qualitative Hcg negative Current Medications Medications (Trade) Dose Ordered Sig/Seven Route PRN Reason Start Time Stop Time Status Last Admin Dose Admin Ceftriaxone Sodium (Rocephin) 1 gm 1X ONCE IVP 05/07/20 02:00 05/07/20 02:01 DC 05/07/20 02:28 Ketorolac Tromethamine (Toradol 30mg Vial) 30 mg 1X ONCE IVP 05/07/20 02:00 05/07/20 02:01 DC 05/07/20 02:28 Vital Signs: Vital Signs Date Time Temp Pulse Resp B/P (MAP) Pulse Ox O2 Delivery O2 Flow Rate FiO2 05/06/20 23:09 97.9 93 14 196/112 (140) 100 Room Air 97.9 EKG: EKG: [] Radiology/Procedures: Radiology/Procedures: [][facility] [address] [place] [address] IMAGING REPORT Signed PATIENT: CRYSTAL NOVOA ACCOUNT: [id number] : 1995 LOCATION: ER AGE: 24 SEX: F EXAM STATUS: REG ER ORD. PHYSICIAN: ERLINDA CARDENAS DO REASON: ruq abdominal pain PROCEDURE: ABDOMEN LTD EXAM: RIGHT UPPER QUADRANT ULTRASOUND. HISTORY: Right upper quadrant pain. COMPARISON: None. FINDINGS: Sonographic evaluation of the right upper quadrant was performed. Hyperechogenicity of the hepatic parenchyma is consistent with diffuse hepatic steatosis. The liver is enlarged spanning 20 cm. There are no focal lesions. The gallbladder is partially contracted but otherwise unremarkable without evidence of stones, wall thickening or pericholecystic fluid. There is no sonographic Kauffman sign. The common duct measures 4 mm. The visualized portions of the head of the pancreas reveal no abnormality. The right kidney measures 13.0 cm. Cortical thickness and echogenicity are preserved. There is no hydronephrosis. The visualized portions of the abdominal aorta and inferior vena cava are grossly patent and normal in caliber. IMPRESSION: 1. Diffuse hepatic steatosis and hepatomegaly. Electronically signed by: Libertad Rodríguez MD (05/07/2020 12:52 AM) [facility] DICTATED and SIGNED BY: IMELDA RODRÍGUEZ MD DATE: 05/07/20 0052 [facility] [address] [place] [address] IMAGING REPORT Signed PATIENT: CRYSTAL NOVOA ACCOUNT: [id number] : 1995 LOCATION: ER AGE: 24 SEX: F EXAM STATUS: REG ER ORD. PHYSICIAN: ERLINDA CARDENAS DO REASON: RIGHT FLANK PAIN PROCEDURE: CT ABDOMEN PELVIS WO CONTRAST EXAM: CT ABDOMEN/PELVIS WITHOUT CONTRAST. HISTORY: Right flank pain. TECHNIQUE: Computed tomography of the abdomen and pelvis was performed without intravenous contrast. One or more of the following individualized dose reduction techniques were utilized for this examination: 1. Automated exposure control. 2. Adjustment of the mA and/or kV according to patient size. 3. Use of iterative reconstruction technique. COMPARISON: None. FINDINGS: Lung windows through the visualized portions of the bases reveal there are small ill-defined groundglass nodules in the right base measuring up to 9 mm. Another in the left lower lobe measures 10 mm.. Bone windows reveal no suspicious lesions. The liver, gallbladder, pancreas, adrenal glands and spleen are unremarkable without contrast. There are no pathologically enlarged lymph nodes. There are no renal or ureteral calculi. The kidneys are unremarkable without contrast. There is no evidence of appendicitis. There is no small bowel obstruction. IMPRESSION: 1. No renal or ureteral calculi. No cause for acute pain is identified. 2. Small groundglass nodules in the lung bases are most likely infectious in this demographic. Correlate for atypical pneumonia. Electronically signed by: Libertad Rodríguez MD (05/07/2020 3:17 AM) [facility] DICTATED and SIGNED BY: IMELDA RODRÍGUEZ MD DATE: 05/07/20 0317 Course & Med Decision Making: Course & Med Decision Making Pertinent Labs and Imaging studies reviewed. (See chart for details) Patient is a 24-year-old female who presented to ER today for evaluation of right flank pain that radiates to her right shoulder. CT scan and ultrasound of her abdomen pelvic show that she has hepatomegaly with fatty liver contribute to her pain. Patient has no cough, no fever. We will discharge her home, advised her to follow-up with her family physician. August Disclaimer: Dragilana Disclaimer: This electronic medical record was generated, in whole or in part, using a voice recognition dictation system. Departure Departure Impression: Primary Impression: Flank pain Additional Impressions: Fatty liver Hepatomegaly Disposition: 01 DC HOME SELF CARE/HOMELESS Condition: STABLE Referrals: ЮЛИЯ SÁNCHEZ MD (PCP) follow up with your doctor next week Patient Instructions: Flank Pain, Hepatomegaly Additional Instructions: Thank you for visiting our Emergency Department. We appreciate you trusting us with your care. If any additional problems come up don't hesitate to return to visit us. Please follow up with your primary care provider so they can plan additional care if needed and know about the problem that you had. If symptoms worsen come back to the Emergency Department. Any concerning symptoms that start such as chest pain, shortness of air, weakness or numbness on one side of the body, running high fevers or any other concerning symptoms return to the ER. ERLINDA CARDENAS DO May 06, 2020 23:36
[2020-05-06 23:40] LABS: BASO # 0.1 x10^3/uL (0.0-0.2); BASO % 1 % (0-3); EOS # 0.1 x10^3/uL (0.0-0.7); EOS % 2 % (0-3); HEMOGLOBIN 13.2 g/dL (12.0-15.5); LYMPH # 1.8 x10^3/uL (1.0-4.8); LYMPH % 31 % (24-48); MEAN CORPUSCULAR HEMOGLOBIN 24 pg (25-35); MEAN CORPUSCULAR HGB CONC 32 g/dL (31-37); MEAN CORPUSCULAR VOLUME 76 fL (79-100); MONO # 0.6 x10^3/uL (0.0-1.1); MONO % 11 % (0-9); NEUT # 3.1 x10^3/uL (1.8-7.7); NEUT % 55 % (31-73); PLATELET COUNT 214 x10^3/uL (140-400); RED CELL DISTRIBUTION WIDTH 14.7 % (11.5-14.5); WHITE BLOOD COUNT 5.7 x10^3/uL (4.0-11.0)
[2020-05-06 23:43] LABS: BILIRUBIN,URINE NEGATIVE (NEG); CLARITY,URINE CLEAR; COLOR,URINE YELLOW; NITRITE,URINE NEGATIVE (NEG); PROTEIN,URINE NEGATIVE (NEG-TRACE); UROBILINOGEN,URINE 0.2 mg/dL (0.2 mg/dL)
[2020-05-06 23:48] LABS: CALCIUM 9.1 mg/dL (8.5-10.1); CREATININE 0.7 mg/dL (0.6-1.0); GFR 125.5; POTASSIUM 3.7 mmol/L (3.5-5.1)
[2020-05-06 23:48] LABS: BACTERIA,URINE MANY /HPF (0-FEW)
[2020-05-06 23:50] LABS: RBC,URINE 0 /HPF (0-2)
[2020-05-06 23:53] LABS: ALBUMIN 3.5 g/dL (3.4-5.0); ALBUMIN/GLOBULIN RATIO 0.9 (1.0-1.7); TOTAL BILIRUBIN 0.1 mg/dL (0.2-1.0); TOTAL PROTEIN 7.3 g/dL (6.4-8.2)
--- NOTE | 2020-05-07 00:55 | RAD ---
EXAM: RIGHT UPPER QUADRANT ULTRASOUND. HISTORY: Right upper quadrant pain. COMPARISON: None. FINDINGS: Sonographic evaluation of the right upper quadrant was performed. Hyperechogenicity of the hepatic parenchyma is consistent with diffuse hepatic steatosis. The liver is enlarged spanning 20 cm. There are no focal lesions. The gallbladder is partially contracted but otherwise unremarkable without evidence of stones, wall thickening or pericholecystic fluid. There is no sonographic Kauffman sign. The common duct measures 4 mm. The visualized portions of the head of the pancreas reveal no abnormality. The right kidney measures 13.0 cm. Cortical thickness and echogenicity are preserved. There is no hydronephrosis. The visualized portions of the abdominal aorta and inferior vena cava are grossly patent and normal in caliber. IMPRESSION: 1. Diffuse hepatic steatosis and hepatomegaly. Electronically signed by: Libertad Rodríguez MD (05/07/2020 12:52 AM) [facility]
[2020-05-07] MEDS ORDERED: cefTRIAXone IV Push 1 GM VIAL. IVP ONE (02:00)
[2020-05-07] MEDS ORDERED: KETOROLAC 30 MG/ML VIAL. IVP ONE (02:00)
--- NOTE | 2020-05-07 03:20 | RAD ---
EXAM: CT ABDOMEN/PELVIS WITHOUT CONTRAST. HISTORY: Right flank pain. TECHNIQUE: Computed tomography of the abdomen and pelvis was performed without intravenous contrast. One or more of the following individualized dose reduction techniques were utilized for this examination: 1. Automated exposure control. 2. Adjustment of the mA and/or kV according to patient size. 3. Use of iterative reconstruction technique. COMPARISON: None. FINDINGS: Lung windows through the visualized portions of the bases reveal there are small ill-defined groundglass nodules in the right base measuring up to 9 mm. Another in the left lower lobe measures 10 mm.. Bone windows reveal no suspicious lesions. The liver, gallbladder, pancreas, adrenal glands and spleen are unremarkable without contrast. There are no pathologically enlarged lymph nodes. There are no renal or ureteral calculi. The kidneys are unremarkable without contrast. There is no evidence of appendicitis. There is no small bowel obstruction. IMPRESSION: 1. No renal or ureteral calculi. No cause for acute pain is identified. 2. Small groundglass nodules in the lung bases are most likely infectious in this demographic. Correlate for atypical pneumonia. Electronically signed by: Libertad Rodríguez MD (05/07/2020 3:17 AM) [facility]
[2020-05-07 03:58] VITALS: BP 157/99
== END 2020-05-07 04:05 | disposition home or self-care (01) ==
LOC: ER 23:08
DX: R10.11 Right upper quadrant pain (principal); K76.0 Fatty (change of) liver, not elsewhere classified; R16.0 Hepatomegaly, not elsewhere classified; I10 Essential (primary) hypertension; Z98.890 Other specified postprocedural states
CPT/HCPCS: 36415; 74176; 76705; 80053; 81001; 81025; 83690; 85025; 87086; 96374; 96375; 99285; J0696; J1885

== ENCOUNTER 2020-05-22 11:27 | Emergency (ER) | payer OTHER ==
[~2020-05-22] VITALS: Ht 175.3 cm; Wt 139.6 kg
[2020-05-22 12:07] VITALS: BP 173/105
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
[2020-05-22] MEDS ORDERED: IBUPROFEN 400 MG TABLET. PO ONE (12:15)
--- NOTE | 2020-05-22 12:40 | RAD ---
EXAM: 1. Right forearm 2 views. 2. Right wrist 3 views. 3. Right hand 3 views. HISTORY: Fall, pain. COMPARISON: None. FINDINGS: No fractures are identified throughout. The joint spaces and alignment of the elbow, wrist and hand are maintained. IMPRESSION: 1. No fracture or malalignment. Electronically signed by: Libertad Rodríguez MD (05/22/2020 12:38 PM) [id number]
== END 2020-05-22 13:00 | disposition home or self-care (01) ==
LOC: ER 11:27
DX: M25.531 Pain in right wrist (principal); M79.631 Pain in right forearm; G89.11 Acute pain due to trauma; I10 Essential (primary) hypertension; Y04.0XXA Assault by unarmed brawl or fight, initial encounter; Y93.89 Activity, other specified; Y92.89 Other specified places as the place of occurrence of the external cause; Y99.8 Other external cause status
CPT/HCPCS: 29125; 73090; 73110; 73130; 99284

== ENCOUNTER 2020-07-16 12:06 | Emergency (ER) | payer OTHER ==
[~2020-07-16] VITALS: Ht 175.3 cm; Wt 136.0 kg
[2020-07-16 12:17] VITALS: BP 158/76
[2020-07-16] MEDS ORDERED: CEPH500C PO (12:51)
--- NOTE | 2020-07-16 12:52 | PHYS DOC ---
Past Medical History Past Medical History: Hypertension, UTI Additional Past Medical Histor: COVID Past Surgical History: Other Additional Past Surgical Histo: "TUBES IN EARS WHEN LITTLE", wisdom teeth extraction Smoking Status: Never Smoker Alcohol Use: Occasionally Drug Use: None General Adult EDM: Chief Complaint: BREAST PROBLEM HPI: HPI: Patient is a 24 year old female who presents with left breast pain that she began feeling yesterday and this morning there is a redness that is starting on the breast on the anterior breast at 1200 above the nipple. Patient has had a left breast nipple piercing for the last 5 months. There is tenderness noted over this reddened area. No lymph nodes are felt in the axillary area and there is no lumps felt in the breast. Patient denies any nipple discharge and there is no nipple discharge seen. Patient states it feels like when she had mastitis before in the past. Patient has a history of hypertension and UTI. Rates her tenderness type pain a 8 out of 10. Review of Systems: Review of Systems: Constitutional: Denies fever or chills. [] Eyes: Denies change in visual acuity. [] HENT: Denies nasal congestion or sore throat. [] Respiratory: Denies cough or shortness of breath. [] Cardiovascular: Denies chest pain or edema. [] GI: Denies abdominal pain, nausea, vomiting, bloody stools or diarrhea. [] : Denies dysuria. [] Musculoskeletal: Denies back pain or joint pain. Left breast pain[] Integument: Denies rash. Left breast pain and redness[] Neurologic: Denies headache, focal weakness or sensory changes. [] Endocrine: Denies polyuria or polydipsia. [] Lymphatic: Denies swollen glands. [] Psychiatric: Denies depression or anxiety. [] Heart Score: Risk Factors: Risk Factors: DM, Current or recent (<one month) smoker, HTN, HLP, family history of CAD, obesity. Risk Scores: Score 0 - 3: 2.5% MACE over next 6 weeks - Discharge Home Score 4 - 6: 20.3% MACE over next 6 weeks - Admit for Clinical Observation Score 7 - 10: 72.7% MACE over next 6 weeks - Early Invasive Strategies Allergies: Allergies: Allergies Coded Allergies Type Severity Reaction Last Updated Verified No Known Drug Allergies 05/27/16 No Physical Exam: PE: Constitutional: Well developed, well nourished, no acute distress, non-toxic appearance. [] HENT: Normocephalic, atraumatic, bilateral external ears normal, oropharynx moist, no oral exudates, nose normal. [] Eyes: PERRLA, EOMI, conjunctiva normal, no discharge. [] Neck: Normal range of motion, no tenderness, supple, no stridor. [] Cardiovascular:Heart rate regular rhythm, no murmur [] Lungs & Thorax: Bilateral breath sounds clear to auscultation [] Abdomen: Bowel sounds normal, soft, no tenderness, no masses, no pulsatile masses. [] Skin: Warm, dry, no erythema, no rash. Redness on top of left breast above the nipple at 1200. [] Back: No tenderness, no CVA tenderness. [] Extremities: No tenderness, no cyanosis, no clubbing, ROM intact, no edema. [] Neurologic: Alert and oriented X 3, normal motor function, normal sensory function, no focal deficits noted. [] Psychologic: Affect normal, judgement normal, mood normal. [] Current Patient Data: Vital Signs: Vital Signs Date Time Temp Pulse Resp B/P (MAP) Pulse Ox O2 Delivery O2 Flow Rate FiO2 07/16/20 12:17 98.2 90 16 158/76 (103) 99 Room Air 98.2 EKG: EKG: [] Radiology/Procedures: Radiology/Procedures: [] Course & Med Decision Making: Course & Med Decision Making Pertinent Labs and Imaging studies reviewed. (See chart for details) See HPI. Alert and oriented x4. Ambulatory with a steady gait. Afebrile. Patient denies any fevers or chills. She is not breast-feeding. Patient does have a primary care provider that she states she can follow-up with. Patient to use a heating pad and ibuprofen to help with pain. Patient will be placed on Keflex and to follow up with primary care provider. [] Dragon Disclaimer: Dragon Disclaimer: This electronic medical record was generated, in whole or in part, using a voice recognition dictation system. Departure Departure Impression: Primary Impression: Breast pain in female Disposition: 01 DC HOME SELF CARE/HOMELESS Condition: STABLE Referrals: ЮЛИЯ SÁNCHEZ MD (PCP) Patient Instructions: Breast Tenderness, , Mastitis Additional Instructions: Follow-up with your primary care provider soon as possible. Take antibiotic as prescribed and with food. Take ibuprofen try using a heating pad for your pain. Scripts Cephalexin (CEPHALEXIN) 500 Mg Capsule 1 CAP PO QID for 10 Days, #40 CAP Prov: ARIEL DELAROSA APRN 07/16/20 ARIEL DELAROSA APRN Jul 16, 2020 12:51
== END 2020-07-16 13:43 | disposition home or self-care (01) ==
LOC: ER 12:06
DX: N64.4 Mastodynia (principal); I10 Essential (primary) hypertension; Z98.890 Other specified postprocedural states
CPT/HCPCS: 99283

== ENCOUNTER 2020-12-18 12:19 | Emergency (ER) | payer OTHER ==
[~2020-12-18] VITALS: Ht 175.3 cm; Wt 133.3 kg
[~2020-12-18 12:19] MED LIST changes: +CEPH500C PO
[2020-12-18 12:23] VITALS: BP 167/109
[2020-12-18] MEDS ORDERED: DIPH,PERTUSS(ACELL),TET VAC/PF 0.5 ML SYRINGE. VAX IM ONE (12:45)
[2020-12-18] MEDS ORDERED: CEPH500C PO (12:56)
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
[2020-12-18] MEDS ORDERED: NEOMY/BACITR/POLYMYXIN OINT PACKET. TP ONE (13:00)
== END 2020-12-18 13:24 | disposition home or self-care (01) ==
LOC: ER 12:19
DX: S61.512A Laceration without foreign body of left wrist, initial encounter (principal); I10 Essential (primary) hypertension; Z87.440 Personal history of urinary (tract) infections; W26.8XXA Contact with other sharp object(s), not elsewhere classified, initial encounter; Y93.89 Activity, other specified; Y92.89 Other specified places as the place of occurrence of the external cause; Y99.8 Other external cause status
CPT/HCPCS: 29125; 90471; 90715; 99283

== ENCOUNTER 2021-01-11 10:48 | Emergency (ER) | payer OTHER ==
[~2021-01-11] VITALS: Ht 175.3 cm; Wt 131.0 kg
[2021-01-11 11:52] VITALS: BP 152/94
[2021-01-11] MEDS ORDERED: AMOX875T PO (12:16)
[2021-01-11] MEDS ORDERED: CETI10TA74 PO (12:16)
--- NOTE | 2021-01-11 12:16 | PHYS DOC ---
Past Medical History Past Medical History: Hypertension, UTI Additional Past Medical Histor: COVID Past Surgical History: Other Additional Past Surgical Histo: "TUBES IN EARS WHEN LITTLE", wisdom teeth extraction Smoking Status: Never Smoker Alcohol Use: Occasionally Drug Use: None General Adult EDM: Chief Complaint: EARACHE/EAR PAIN HPI: HPI: Patient is a 25 year old female with history of hypertension who presents to the ED today complaining of bilateral ear pain, symptoms began on Monday last week. Patient describes the pain as sharp, rates the pain as mild and intermittent worse on the right, she states yawning relieves some of the pain. She states she had a cold last week but the cold is gone and the ear pain has remained Review of Systems: Review of Systems: Constitutional: Denies fever or chills. [] Eyes: Denies change in visual acuity. [] HENT: Reports bilateral ear pain denies nasal congestion or sore throat. [] Respiratory: Denies cough or shortness of breath. [] Cardiovascular: Denies chest pain or edema. [] GI: Denies abdominal pain, nausea, vomiting, bloody stools or diarrhea. [] : Denies dysuria. [] Musculoskeletal: Denies back pain or joint pain. [] Integument: Denies rash. [] Neurologic: Denies headache, focal weakness or sensory changes. [] Psychiatric: Denies depression or anxiety. [] Heart Score: C/O Chest Pain: N/A Risk Factors: Risk Factors: DM, Current or recent (<one month) smoker, HTN, HLP, family history of CAD, obesity. Risk Scores: Score 0 - 3: 2.5% MACE over next 6 weeks - Discharge Home Score 4 - 6: 20.3% MACE over next 6 weeks - Admit for Clinical Observation Score 7 - 10: 72.7% MACE over next 6 weeks - Early Invasive Strategies Allergies: Allergies: Allergies Coded Allergies Type Severity Reaction Last Updated Verified No Known Drug Allergies 12/18/20 No Physical Exam: PE: Constitutional: Well developed, well nourished, no acute distress, non-toxic appearance. [] HENT: Normocephalic, atraumatic, bilateral external ears normal, oropharynx moist, no oral exudates, nose normal. [] Bilateral TM are mildly injected right worse than left. There is small amount of cloudy fluid in both the ears worse on to the right Eyes: PERRLA, EOMI, conjunctiva normal, no discharge. [] Neck: Normal range of motion, no tenderness, supple, no stridor. [] Cardiovascular:Heart rate regular rhythm, no murmur [] Lungs & Thorax: Bilateral breath sounds clear to auscultation [] Abdomen: Bowel sounds normal, soft, no tenderness, no masses, no pulsatile masses. [] Skin: Warm, dry, no erythema, no rash. [] Back: No tenderness, no CVA tenderness. [] Extremities: No tenderness, no cyanosis, no clubbing, ROM intact, no edema. [] Neurologic: Alert and oriented X 3, normal motor function, normal sensory funct ion, no focal deficits noted. [] Psychologic: Affect normal, judgement normal, mood normal. [] Current Patient Data: Vital Signs: Vital Signs Date Time Temp Pulse Resp B/P (MAP) Pulse Ox O2 Delivery O2 Flow Rate FiO2 01/11/21 11:52 98.3 82 12 152/94 (128) 100 Room Air 98.3 EKG: EKG: [] Radiology/Procedures: Radiology/Procedures: [] Course & Med Decision Making: Course & Med Decision Making Pertinent Labs and Imaging studies reviewed. (See chart for details) Patient has otitis media. Discharged on amoxicillin. Also recommended Tylenol/ Motrin for pain. Recommended a decongestant as well. August Disclaimer: August Disclaimer: This electronic medical record was generated, in whole or in part, using a voice recognition dictation system. Departure Departure Impression: Primary Impression: Bilateral otitis media Qualified Codes: H65.193 - Other acute nonsuppurative otitis media, bilateral Disposition: HOME / SELF CARE / HOMELESS Condition: STABLE Referrals: AIRAM MOULTON (PCP) follow up in one week Patient Instructions: Otitis Media, Adult, [id number] Additional Instructions: You have ear infection. Take the prescribed antibiotics until completed. Please follow-up with your primary care doctor in 1 to 2 weeks or the provided ENT. You can take Tylenol Motrin for pain or fever. Consider taking [id number]-iaqaeoz allergy medicines like Claritin or Zyrtec for 1 week. Scripts Cetirizine Hcl (ZYRTEC) 10 Mg Tablet 1 TAB PO DAILY, #30 TAB 2 Refills Prov: MUTUNGA,MARTIN M CLIENT CARE MANAGER 01/11/21 Amoxicillin (AMOXICILLIN) 875 Mg Tablet 1 TAB PO BID, #20 TAB Prov: MARTIN TINOCO APRN 01/11/21 MARTIN TINOCO APRN Jan 11, 2021 12:16
== END 2021-01-11 12:25 | disposition home or self-care (01) ==
LOC: ER 10:48
DX: H65.193 Other acute nonsuppurative otitis media, bilateral (principal); I10 Essential (primary) hypertension
CPT/HCPCS: 99283

== ENCOUNTER 2021-05-11 08:47 | Emergency (ER) | payer SELFPAY ==
[~2021-05-11] VITALS: Ht 175.3 cm; Wt 127.5 kg
[~2021-05-11 08:47] MED LIST changes: +AMOX875T PO; +CETI10TA74 PO
[2021-05-11 09:01] VITALS: BP 145/95
--- NOTE | 2021-05-11 09:25 | ED.ADGEN ---
Past Medical History Past Medical History: Hypertension, UTI Additional Past Medical Histor: COVID Past Surgical History: Other Additional Past Surgical Histo: "TUBES IN EARS WHEN LITTLE", wisdom teeth extraction Smoking Status: Never Smoker Alcohol Use: Occasionally Drug Use: None General Adult EDM: Chief Complaint: SORE THROAT HPI: HPI: Patient is a 25-year-old female who arrives ambulatory to the emergency department complaint of a sore throat over the past 4 days. Patient reports upon waking today she notes that she is left ear pain as well. Patient states originally she thought this may be her allergies however given that this is ongoing for 4 days she is concerned there may be something more serious developing. Despite this, patient denies any fevers or shortness of air. She further denies any chest pain and states she has been vaccinated against coronavirus. She is awake, alert and nontoxic-appearing. Review of Systems: Review of Systems: Constitutional: Denies fever or chills. [] Eyes: Denies change in visual acuity. [] HENT: Reports left ear pain in addition to a sore throat. [] Respiratory: Denies cough or shortness of breath. [] Cardiovascular: Denies chest pain or edema. [] GI: Denies abdominal pain, nausea, vomiting, bloody stools or diarrhea. [] : Denies dysuria. [] Musculoskeletal: Denies back pain or joint pain. [] Integument: Denies rash. [] Neurologic: Denies headache, focal weakness or sensory changes. [] Endocrine: Denies polyuria or polydipsia. [] Lymphatic: Denies swollen glands. [] Psychiatric: Denies depression or anxiety. [] Allergies: Allergies: Allergies Coded Allergies Type Severity Reaction Last Updated Verified No Known Drug Allergies 12/18/20 No Physical Exam: PE: Constitutional: Well developed, well nourished, no acute distress, non-toxic appearance. [] HENT: Mild pharyngeal erythema. Normocephalic, atraumatic, bilateral external ears normal, oropharynx moist, no oral exudates, nose normal. [] Eyes: PERRLA, EOMI, conjunctiva normal, no discharge. [] Neck: Normal range of motion, no tenderness, supple, no stridor. [] Cardiovascular:Heart rate regular rhythm, no murmur [] Lungs & Thorax: Bilateral breath sounds clear to auscultation [] Abdomen: Bowel sounds normal, soft, no tenderness, no masses, no pulsatile masses. [] Skin: Warm, dry, no erythema, no rash. [] Back: No tenderness, no CVA tenderness. [] Extremities: No tenderness, no cyanosis, no clubbing, ROM intact, no edema. [] Neurologic: Alert and oriented X 3, normal motor function, normal sensory funct ion, no focal deficits noted. [] Psychologic: Affect normal, judgement normal, mood normal. [] Current Patient Data: Labs: Laboratory Tests Test 05/11/21 09:25 SARS-CoV-2 Antigen (Rapid) Negative (NEGATIVE) Group A Streptococcus Rapid Negative (NEGATIVE) Vital Signs: Vital Signs Date Time Temp Pulse Resp B/P (MAP) Pulse Ox O2 Delivery O2 Flow Rate FiO2 05/11/21 09:01 97.8 78 16 145/95 (112) 99 Room Air 97.8 EKG: EKG: [] Heart Score: C/O Chest Pain: No Risk Factors: Risk Factors: DM, Current or recent (<one month) smoker, HTN, HLP, family history of CAD, obesity. Risk Scores: Score 0 - 3: 2.5% MACE over next 6 weeks - Discharge Home Score 4 - 6: 20.3% MACE over next 6 weeks - Admit for Clinical Observation Score 7 - 10: 72.7% MACE over next 6 weeks - Early Invasive Strategies Radiology/Procedures: Radiology/Procedures: [] Course & Med Decision Making: Course & Med Decision Making Pertinent Labs and Imaging studies reviewed. (See chart for details) [] Auugst Disclaimer: August Disclaimer: This electronic medical record was generated, in whole or in part, using a voice recognition dictation system. Departure Departure Impression: Primary Impression: Pharyngitis with viral syndrome Disposition: HOME / SELF CARE / HOMELESS Condition: STABLE Referrals: AIRAM MOULTON (PCP) Patient Instructions: Viral Pharyngitis Scripts Methylprednisolone (MEDROL) 4 Mg Tab.ds.pk 1 PKG PO UD for inflammation, #1 PKG Prov: MACARENA WHITE DO 05/11/21 MACARENA WHITE DO May 11, 2021 09:25
[2021-05-11] MEDS ORDERED: METH4TAB2 PO (10:49)
--- NOTE | 2021-05-12 10:19 | NUR ---
IP: Attempted to contact pt concerning covid results. No answer and no voice mailbox.
--- NOTE | 2021-05-13 15:39 | NUR ---
IP: Second attempt made to contact pt concerning covid results. No answer.
== END 2021-05-11 10:54 | disposition home or self-care (01) ==
LOC: ER 08:47
DX: B34.9 Viral infection, unspecified (principal); Z20.822 Contact with and (suspected) exposure to COVID-19; I10 Essential (primary) hypertension
CPT/HCPCS: 87070; 87426; 87880; 99283; U0003; U0005